=== PATIENT | female | born 1930 | race Caucasian/White ===

== ENCOUNTER 2016-11-09 13:44 | Inpatient (IN) ==
--- NOTE | 2016-11-09 14:46 | XRay Report ---
Indication: Clearance PROCEDURE: XR chest 1V: Encounter: Initial Comparison: None Findings: Lungs are clear. No consolidation, pleural effusion or pneumothorax. Left pacemaker with probable cardiac valve replacement. Heart size and mediastinal contours are within normal limits. Pulmonary vascularity is normal. Severe degenerative change in both shoulders. Impression: No acute cardiopulmonary disease. .
[2016-11-09] MEDS ORDERED: HALOPERIDOL 0.5 MG TABLET PO PRN (15:16)
[2016-11-09] MEDS ORDERED: HALOPERIDOL 5 MG/ML INJECTION IM PRN (15:16)
--- NOTE | 2016-11-09 19:14 | 24 Hour Neuropsychiatic Eval ---
Date of Admission: 11/09/16 14:18 Chief complaint: "They are lying" History of Present Illness: HPI: 86 Y/O CF who was recently on our unit sent from a PA for increasing paranoia. Nursing staff at the facility states the pt has been increasingly paranoid and angry with staff and believes staff were stealing her things. Pt had begun to refuse meds and was tearful at times. On face to face the pt has poor insight. She states staff stole some pearls from a necklace and they have been lying about her. She states some of the patients are actually staff in disguise and are spying on her. She states she feels safe here and denies S/I. STRESSORS: Pt believes NH staff are stealing her things. PSYCH ROS: Pt denies feeling depressed at this time. She is impulsive and gets angry easily. She is alert and oriented x 3 but does have some issues with memory. She denies S/i. She denies anxiety and denies AH but is paranoid and delusional. PAST PSYCH: Pt was recently admitted to our [facility] for similar symptoms. [facility] Patient Stated Medical History Cerebrovascular Accident Yes Cataracts Yes: "have been removed" Glaucoma Yes: " surgery on right eye" Coronary Artery Disease Yes Heart Murmur Yes Hypertension Yes Valvular Heart Disease Yes Obstructive Bowel Yes: " history of SBO" Other GI Yes: Colon Cancer, colon resection Other Yes: bladder tumor Osteoarthritis Yes Depression Yes Paranoid Disorder Yes Post Menopausal Yes Family History: No family hx of mental illness - Social History Smoking status: Never smoker Substance use type: does not use Housing: half-way service: No Review of Systems - Constitutional Constitutional: Present: fatigue - Musculoskeletal Musculoskeletal: Present: arthralgias - Neurological Neurological: Present: memory loss - Psychiatric Psychiatric: Present: behavioral changes Mental Status Exam Vitals: Last Vital Signs Temp 97.0 F 11/09/16 14:37 Pulse 84 11/09/16 14:37 Resp 18 11/09/16 14:37 BP 141/66 H 11/09/16 14:37 Pulse Ox 98 11/09/16 14:37 Height: 1.57 m Weight: 74.6 kg - Mental Status Exam Muscle Strength/Tone: Normal Dressing: Casual Grooming: Good Attitude: Cooperative Motor Activity: Normal Eye Contact: Good Speech: Normal Volume: Normal Rhythm: Appropriate Rhythm Orientation: Oriented X4 Mood: Neutral Affect: Hostile Rate of Thoughts: Appropriate Rate Thought Organization: [place] Associations: Illogical Abstract Reasoning: Poor abstract reasoning Thought Content: Delusions Perception/Psychotic: Perception Normal Fund of Knowledge: Poor fund of knowledge Memory: Poor-immediate Suicidal Ideation: None Homicidal Ideation: None Insight: Poor Judgement: Poor Impulse Control: Poor - Laboratory Result Diagrams: 11/09/16 16:23 11/09/16 16:23 Laboratory Results - last 24 hr 11/09/16 11/09/16 11/09/16 16:23 16:23 17:44 WBC 6.6 RBC 3.55 L Hgb 11.2 L Hct 35.7 L MCV 100.6 H MCH 31.5 MCHC 31.4 RDW Std Deviation 49.0 Plt Count 206 MPV 10.2 Immature Gran % (Auto) 0.2 Neut % (Auto) 55.9 Lymph % (Auto) 29.0 [place] % (Auto) 8.8 Eos % (Auto) 5.3 H Baso % (Auto) 0.8 Neut # 3.7 Lymph # 1.9 [place] # 0.6 Eos # 0.4 Baso # 0.1 Abs Immat Gran (auto) 0.01 INR Turbidity < 20 Sodium 144 Potassium 3.8 Chloride 108 H Carbon Dioxide 27 Anion Gap 9 BUN 25.0 H Creatinine 0.9 GFR Calculation 59 BUN/Creatinine Ratio 28 H Glucose 106 Calculated Osmolality 281 H Calcium 9.4 Total Bilirubin 0.30 Icterus Index < 2 AST 28 ALT 42 Alkaline Phosphatase 118 Total Protein 7.4 Albumin 4.4 Globulin 3.0 Albumin/Globulin Ratio 1.5 TSH 2.41 Specimen Hemolysis < 15 Ur Collection Type Urine, clean catch Urine Color Yellow Urine Clarity Clear Urine pH 5.5 Ur Specific [place] 1.010 L Urine Protein Negative Urine Glucose (UA) Negative Urine Ketones Negative Urine Occult Blood Trace-intact Urine Nitrate Negative Urine Bilirubin Negative Urine Urobilinogen 0.2 Ur Leukocyte Esterase Trace A Urinalysis Comment Microscopic not ind. 11/09/16 17:59 WBC RBC Hgb Hct MCV MCH MCHC RDW Std Deviation Plt Count MPV Immature Gran % (Auto) Neut % (Auto) Lymph % (Auto) [place] % (Auto) Eos % (Auto) Baso % (Auto) Neut # Lymph # [place] # Eos # Baso # Abs Immat Gran (auto) INR 2.37 H Turbidity Sodium Potassium Chloride Carbon Dioxide Anion Gap BUN Creatinine GFR Calculation BUN/Creatinine Ratio Glucose Calculated Osmolality Calcium Total Bilirubin Icterus Index AST ALT Alkaline Phosphatase Total Protein Albumin Globulin Albumin/Globulin Ratio TSH Specimen Hemolysis Ur Collection Type Urine Color Urine Clarity Urine pH Ur Specific [place] Urine Protein Urine Glucose (UA) Urine Ketones Urine Occult Blood Urine Nitrate Urine Bilirubin Urine Urobilinogen Ur Leukocyte Esterase Urinalysis Comment Assessment and Plan (1) Major neurocognitive disorder Problem details: with behavioral disturbance Current visit: Yes Status: Acute Will restart home meds. Baseline labs and med team to follow.
[2016-11-09] MEDS: WARFARIN 5 MG TABLET PO SCH (19:30)
[2016-11-09] MEDS: RisperiDONE 0.5 MG TABLET PO SCH (20:11)
[2016-11-09] MEDS: PHENYTOIN 100 MG CAPSULE PO SCH (20:11)
[2016-11-09] MEDS: GABAPENTIN 100 MG CAPSULE PO SCH (20:11)
[2016-11-09] MEDS: MIRTAZAPINE 15 MG TABLET PO SCH (20:11)
[2016-11-09] MEDS: PANTOPRAZOLE 20 MG TABLET PO SCH (20:12)
[2016-11-09] MEDS: TRAVOPROST 0.004% EYE DROPS 2.5ml EACH EYE SCH (20:12)
--- NOTE | 2016-11-10 07:56 | Pharmacy Consult ---
Pharmacy Consult-Warfarin - Laboratory Information 11/09/16 17:59 INR 2.37 H - Consult Information COUMADIN CONSULT (Initial): Dx: A.FIB AND HISTORY OF CVA Baseline INR = 2.37. Will give Warfarin 5mg daily per home dose. Will continue to monitor and make adjustments accordingly. Thank you.
[2016-11-10] MEDS: ASPIRIN 81 MG CHEWABLE TABLET PO SCH (08:26)
[2016-11-10] MEDS: DULOXETINE 60 MG CAPSULE PO SCH (08:27)
[2016-11-10] MEDS: LISINOPRIL 5 MG TABLET PO SCH (08:28)
[2016-11-10] MEDS: GABAPENTIN 100 MG CAPSULE PO SCH ×2 (08:28→20:14)
[2016-11-10] MEDS: TOPIRAMATE 25 MG TABLET PO SCH (08:36)
[2016-11-10] MEDS ORDERED: ATORVASTATIN 10 MG TABLET PO SCH (09:00)
[2016-11-10] MEDS ORDERED: PHENYTOIN 100 MG CAPSULE PO SCH (09:00)
--- NOTE | 2016-11-10 16:43 | History & Physical Report ---
<Ashly Pan V - Last Filed: 11/10/16 16:38> History of Present Illness Date: 11/10/16 Chief complaint: neurocognitive disorder with behavioral disturbance HPI: Cristine is an 86-year-old who is known to the hospitalist services as she was recently admitted on [facility] unit in August 2016 for increased neurocognitive behaviors with disturbance. She continues to reside at [facility] in [place], [place]. It is reported that she has had an increase in paranoid behaviors and accusing staff of stealing her belongings. She has been tearful at times and refusing to take her medications. Patient was evaluated by the [facility] staff and accepted for admission for further psychiatric evaluation and treatment. Admission laboratory studies are reviewed. The WBC count 6.6, hemoglobin 11.2, hematocrit 35.7, platelet count 206. Chemistry panel reviewed, sodium 144, potassium 3.8, BUN 25, creatinine 0.9, glucose 106. Vitamin B12 344, folate 11.9 , TSH 2.41. A urinalysis is obtained that is unremarkable. She is afebrile, pulse 75, blood pressure 140/62, room air saturations 98%. She is seen and examined this afternoon while napping in bed. She does arouse during examination and smiles making eye contact, stating that she feels "fine" . She does not appear to be in any acute distress and she denies having any pain , shortness of breath, GI complaints, or other concerns. Review of Systems ROS unobtainable: due to mental status All systems: reviewed and no additional remarkable complaints except as stated Review of systems: Patient does deny complete review of systems, however, it is unclear if this is accurate due to her mental status - Musculoskeletal Musculoskeletal: Present: arthralgias - Neurological Neurological: Present: memory loss - Psychiatric Psychiatric: Present: behavioral changes PFS Patient Stated Medical History Atrial fibrillation Hypertension Coronary artery disease History of colon cancer History of CVA History of bladder cancer. Arthritis, Glaucoma, Irritable bowel syndrome hypercholesterolemia history of seizures Surgical History: Pacemaker-2015. Cardiac catheter February/2015. Hysterectomy -1996. Appendectomy. Bilateral hip replacements. Colonoscopy-2004 Family History: Noncontributory - Social History Smoking status: Never smoker Substance use type: does not use Alcohol intake frequency: does not drink Current residence: [place] Social history: PCP Dr Montserrat Lockhart Medications Home Medications Medication Instructions Recorded Confirmed Type Acetaminophen [Tylenol Extra 1 tab PO Q4-6H PRN #0 tab 09/08/16 11/09/16 History Strength] Acetaminophen [Tylenol] 2 tab PO TID #60 tab 09/08/16 11/09/16 History Aspirin 1 tab PO DAILY #30 tab 09/08/16 11/09/16 History Atorvastatin Calcium 1 tab PO DAILY #0 tab 09/08/16 11/09/16 History Diphenoxylate HCl/Atropine 1 tab PO QID PRN #20 tab 09/08/16 History [Lomotil 2.5-0.025 mg Tablet] Dorzolamide HCl/Timolol Maleat 1 drop OP BID #10 ml 09/08/16 11/09/16 History [Dorzolamide-Timolol Eye Drops] Duloxetine HCl 1 cap PO DAILY #0 cap 09/08/16 11/09/16 History Gabapentin 1 cap PO BID #0 cap 09/08/16 11/09/16 History Hydrocodone/Acetaminophen ([place] 1 tab PO Q6H PRN #0 tab 09/08/16 11/09/16 History 5-325 Tablet) Lisinopril 5 mg PO DAILY #0 tab 09/08/16 11/09/16 History Metoprolol Succinate 50 mg PO DAILY #0 tab 09/08/16 11/09/16 History Mirtazapine 7.5 mg PO HS #0 09/08/16 11/09/16 History Pantoprazole Sodium 20 mg PO HS #0 09/08/16 11/09/16 History Phenytoin Sodium Extended 2 cap PO HS #90 cap 09/08/16 11/09/16 History [Dilantin] Phenytoin Sodium Extended 3 cap PO HS #90 cap 09/08/16 11/09/16 History [Dilantin] Topiramate 1 tab PO DAILY #90 tab 09/08/16 11/09/16 History Travoprost [Travatan Z] 1 drop OP HS #0 09/08/16 11/09/16 History Warfarin Sodium 5 mg PO 1700 #0 tab 09/08/16 11/09/16 History dilTIAZem HCl [Diltiazem 24Hr ER] 180 mg PO DAILY #0 cap 09/08/16 11/09/16 History hydrOXYzine pamoate [Hydroxyzine 1 cap PO BID PRN #60 cap 09/08/16 11/09/16 History Pamoate] Allergies Allergy/AdvReac Type Severity Reaction Status Date / Time folic acid Allergy Unknown Verified 11/09/16 14:05 iodine Allergy Unknown Verified 11/09/16 14:05 lutein Allergy Unknown Verified 11/09/16 14:05 lycopene Allergy Unknown Verified 11/09/16 14:05 morphine Allergy Unknown Verified 11/09/16 14:05 multivitamin with minerals Allergy Unknown Verified 11/09/16 14:05 penicillin V Allergy Unknown Verified 11/09/16 14:05 Exam Vital Signs: Temperature 98.1 F 11/10/16 08:18 Pulse Rate 75 11/10/16 08:18 Respiratory Rate 16 11/09/16 20:31 Blood Pressure 140/62 H 11/10/16 08:18 Pulse Oximetry 98 11/10/16 08:18 Oxygen Delivery Method Room Air Height: 1.57 m Weight: 74.6 kg Body Mass Index: 30.0 - Constitutional Present: no acute distress, well nourished, well developed - Routine HEENT Exam Head: Present: normocephalic, atraumatic Eye: Present: EOMI, PERRL ENT: Present: mucous membranes moist, dentition normal - Routine Respiratory Exam Present: CTA bilaterally. Absent: wheezes - Routine Cardiovascular Exam Present: RRR, S1, S2. Absent: murmur - Routine Abdominal Exam Present: soft, normoactive bowel sounds, non distended. Absent: tenderness - Routine Extremities Exam Present: normal capillary refill - Routine Back/Spine/Pelvis Exam Back/Spine: Present: full ROM - Routine Skin Exam Present: intact, dry, warm - Routine Neurological Exam Present: alert, CN II-XII intact, moving all extremities - Routine Psychiatric Exam Present: cooperative Results - Labs CBC & Chem 7: 11/09/16 16:23 11/09/16 16:23 Assessment and Plan Assessment and Plan: 11/10/16- Admission Major neurocognitive disorder Paranoia Atrial fibrillation Hypertension. Coronary artery disease. Irritable bowel syndrome. Hypercholesterolemia Osteoarthritis History of colon cancer and bladder cancer. History of CVA. History of seizures Plan Agree with admission to [facility] for further psychiatric eval use and treatment under the care of Dr. Rousseau. All admission laboratory studies were reviewed. Patient does appear to be medically stable at this time. Continue with home cardiology medications including Cardizem, aspirin Patient is chronically anti-coagulated. Pharmacist consultated for management of daily INR and Coumadin dosing. INR today 2.37 Did review code status-full code. Would encourage patient to participate in unit activities and provide a safe environment. Appreciate medical consultation. The hospitalist services will continue to palpation medically manage her existing comorbidities. At time of discharge her medical care will return to her primary care provider Sepsis Assessment - Evaluation Sepsis screening result: No Definite Risk Hospital Course Summary Disclaimer: The visit summary below is not to be considered part of the above Progress Note. Hospital Course: 11/10/16- Admission Major neurocognitive disorder Paranoia Atrial fibrillation Hypertension. Coronary artery disease. Irritable bowel syndrome. Hypercholesterolemia Osteoarthritis History of colon cancer and bladder cancer. History of CVA. History of seizures Plan Agree with admission to [facility] for further psychiatric eval use and treatment under the care of Dr. Rousseau. All admission laboratory studies were reviewed. Patient does appear to be medically stable at this time. Continue with home cardiology medications including Cardizem, aspirin Patient is chronically anti-coagulated. Pharmacist consulted for management of daily INR and Coumadin dosing. INR today 2.37 Did review code status-full code. Would encourage patient to participate in unit activities and provide a safe environment. Appreciate medical consultation. The hospitalist services will continue to palpation medically manage her existing comorbidities. At time of discharge her medical care will return to her primary care provider <Mamie De Los Santos - Last Filed: 11/10/16 19:10> History of Present Illness Date: 11/10/16 [facility] Patient Stated Medical History Cerebrovascular Accident Yes Cataracts Yes: "have been removed" Glaucoma Yes: " surgery on right eye" Coronary Artery Disease Yes Heart Murmur Yes Hypertension Yes Valvular Heart Disease Yes Obstructive Bowel Yes: " history of SBO" Other GI Yes: Colon Cancer, colon resection Other Yes: bladder tumor Osteoarthritis Yes Depression Yes Paranoid Disorder Yes Post Menopausal Yes Exam Vital Signs: Temperature 98.2 F 11/10/16 16:00 Pulse Rate 84 11/10/16 16:00 Respiratory Rate 16 11/10/16 16:00 Blood Pressure 153/71 H 11/10/16 16:00 Pulse Oximetry 99 11/10/16 16:00 Oxygen Delivery Method Room Air Height: 5 ft 2 in Weight: 164 lb 7.437 oz - Routine Neurological Exam Present: alert, oriented X3, CN II-XII intact, normal reflexes, moving all extremities, normal tone, normal speech. Absent: sensory deficit, motor deficit , clonus, fasciculations, tremors Results - Labs CBC & Chem 7: 11/09/16 16:23 11/09/16 16:23 Hospital Course Summary Disclaimer: The visit summary below is not to be considered part of the above Progress Note. Hospital Course: 11/10/16 19:05 I have independently evaluated and examined this patient. I reviewed the chart, the patient's history, and the [employer]EL[employer]/PA"s documented findings as above. We discussed and formulated the assessment and plan as above with additions as below. The patient was alert and examined in the common room while watching TV. She has no complaints. There is some concern about receiving her eyedrops in her right eye. She had surgery in her right eye for glaucoma by Dr. Fernández and was told not to put anything in her eye. Subsequently she has only been using drops in her left eye in spite of the nurses attempts to work with her. After discussion she agreed to try the Travatan in both eyes. She does not want the Cosopt in her right eye as she reports it srivastava Thank you for allowing me to participate in this patient's care. We'll follow along with you signed Dr. De Los Santos.
[2016-11-10] MEDS: WARFARIN 5 MG TABLET PO SCH (17:34)
--- NOTE | 2016-11-10 17:41 | Neuropsych Progress Note ---
[facility] Subjective Date: 11/10/16 - Sujective/Severity of Illness Medications: Acetaminophen/Hydrocodone Bitart ([place] 5/325) 1 tab PO Q6H PRN PRN Reason: P Aspirin (Asa) [address] [facility] Last Admin: 11/10/16 08:26 Dose: 81 mg Atorvastatin Calcium (Lipitor) [address] [facility] Diltiazem HCl (Cardizem Cd) [address] [facility] Last Admin: 11/10/16 08:26 Dose: 180 mg Dorzolamide/Timolol (Cosopt Ocumeter Plus) [address] [facility] Last Admin: 11/10/16 08:27 Dose: 1 drops Duloxetine HCl (Cymbalta) [address] [facility] Last Admin: 11/10/16 08:27 Dose: 60 mg Gabapentin (Neurontin) [address] [facility] Last Admin: 11/10/16 08:28 Dose: 100 mg Haloperidol (Haldol) 0.5 mg PO Q6H PRN PRN Reason: Extreme agitation Haloperidol Lactate (Haldol) 0.5 mg IM Q6H PRN PRN Reason: Extreme agitation Hydroxyzine HCl (Atarax) 25 mg PO BID PRN PRN Reason: Anxiety Lisinopril (Prinivil) [address] [facility] Last Admin: 11/10/16 08:28 Dose: 5 mg Lorazepam (Ativan) 0.5 mg PO Q6H PRN PRN Reason: Extreme agitation Lorazepam (Ativan Inj) 0.5 mg IM Q6H PRN PRN Reason: Extreme agitation Metoprolol Succinate (Toprol Xl) [address] [facility] Last Admin: 11/10/16 08:36 Dose: 50 mg Mirtazapine (Remeron) 7.[address] [facility] Last Admin: 11/09/16 20:11 Dose: 7.5 mg Pantoprazole Sodium (Protonix) [address] [facility] Last Admin: 11/09/16 20:12 Dose: 20 mg Phenytoin Sodium (Dilantin) [address] [facility] Last Admin: 11/09/16 20:11 Dose: 300 mg Phenytoin Sodium (Dilantin) [address] [facility] Risperidone (Risperdal) 0.[address] [facility] Last Admin: 11/10/16 08:36 Dose: 0.25 mg Risperidone (Risperdal) 0.5 mg PO [facility] Last Admin: 11/09/16 20:11 Dose: 0.5 mg Topiramate (Topamax) [address] [facility] Last Admin: 11/10/16 08:36 Dose: 25 mg Travoprost (Travatan Z) 1 drops EACH EYE [facility] Last Admin: 11/09/16 20:12 Dose: 1 drops Warfarin Sodium (Coumadin) [address] [facility] Last Admin: 11/10/16 17:34 Dose: 5 mg Warfarin Sodium (Coumadin Protocol) [address] [facility] Subjective: Pt seen and chart examined. Nursing reports pt is doing well on the unit. Sleeping well and has a good appetite. No behaviors noted. On face to face the pt states she is doing well. She reports her mood is stable. She denies any S/I. She continues to have some delusions about staff at the [facility] but none of those symptoms are present here. Tolerating meds Start Time: 17:30 Stop Time: 17:45 Mental Status Exam Vitals: Last Vital Signs Temp 98.2 F 11/10/16 16:00 Pulse 84 11/10/16 16:00 Resp 16 11/10/16 16:00 BP 153/71 H 11/10/16 16:00 Pulse Ox 99 11/10/16 16:00 Height: 1.57 m Weight: 74.6 kg - Mental Status Exam Muscle Strength/Tone: Normal Dressing: Casual Grooming: Good Attitude: Cooperative Motor Activity: Normal Eye Contact: Good Speech: Normal Volume: Normal Rhythm: Appropriate Rhythm Orientation: Oriented X4 Mood: Neutral Rate of Thoughts: Appropriate Rate Thought Organization: Means Associations: Illogical Abstract Reasoning: Poor abstract reasoning Thought Content: Delusions Perception/Psychotic: Perception Normal Fund of Knowledge: Poor fund of knowledge Memory: Poor-immediate Suicidal Ideation: None Homicidal Ideation: None Insight: Poor Judgement: Poor Impulse Control: Poor - Laboratory Result Diagrams: 11/09/16 16:23 11/09/16 16:23 Laboratory Results - last 24 hr 11/09/16 11/09/16 11/09/16 16:23 17:44 17:59 INR 2.37 H Vitamin B12 344 Folate 11.4 Ur Collection Type Urine, clean catch Urine Color Yellow Urine Clarity Clear Urine pH 5.5 Ur Specific [place] 1.010 L Urine Protein Negative Urine Glucose (UA) Negative Urine Ketones Negative Urine Occult Blood Trace-intact Urine Nitrate Negative Urine Bilirubin Negative Urine Urobilinogen 0.2 Ur Leukocyte Esterase Trace A Urinalysis Comment Microscopic not ind. Assessment and Plan (1) Major depressive disorder, recurrent, severe with psychotic features Current visit: Yes Status: Acute Hospital Course Summary Disclaimer: The visit summary below is not to be considered part of the above Progress Note. Hospital Course: 11/10/16- Admission Major neurocognitive disorder Paranoia Atrial fibrillation Hypertension. Coronary artery disease. Irritable bowel syndrome. Hypercholesterolemia Osteoarthritis History of colon cancer and bladder cancer. History of CVA. History of seizures Plan Agree with admission to [facility] for further psychiatric eval use and treatment under the care of Dr. Rousseau. All admission laboratory studies were reviewed. Patient does appear to be medically stable at this time. Continue with home cardiology medications including Cardizem, aspirin Patient is chronically anti-coagulated. Pharmacist consulted for management of daily INR and Coumadin dosing. INR today 2.37 Did review code status-full code. Would encourage patient to participate in unit activities and provide a safe environment. Appreciate medical consultation. The hospitalist services will continue to palpation medically manage her existing comorbidities. At time of discharge her medical care will return to her primary care provider 11/10/16 17:40 Continue current care
[2016-11-10] MEDS: ATORVASTATIN 10 MG TABLET PO SCH (20:13)
[2016-11-10] MEDS: TRAVOPROST 0.004% EYE DROPS 2.5ml EACH EYE SCH (20:13)
[2016-11-10] MEDS: RisperiDONE 0.5 MG TABLET PO SCH (20:13)
[2016-11-10] MEDS: PANTOPRAZOLE 20 MG TABLET PO SCH (20:14)
[2016-11-10] MEDS: MIRTAZAPINE 15 MG TABLET PO SCH (20:14)
[2016-11-10] MEDS: PHENYTOIN 100 MG CAPSULE PO SCH (20:14)
--- NOTE | 2016-11-11 07:53 | Neuropsych Progress Note ---
Generations Subjective Date: 11/11/16 - Sujective/Severity of Illness Medications: Acetaminophen/Hydrocodone Bitart ([place] 5/325) 1 tab PO Q6H PRN PRN Reason: P Aspirin (Asa) 81 mg PO DAILY [facility] Last Admin: 11/10/16 08:26 Dose: 81 mg Atorvastatin Calcium (Lipitor) 10 mg PO HS [facility] Last Admin: 11/10/16 20:13 Dose: 10 mg Diltiazem HCl (Cardizem Cd) 180 mg PO DAILY [facility] Last Admin: 11/10/16 08:26 Dose: 180 mg Dorzolamide/Timolol (Cosopt Ocumeter Plus) 1 drops RIGHT EYE BID [facility] Last Admin: 11/10/16 20:12 Dose: 1 drops Duloxetine HCl (Cymbalta) 60 mg PO DAILY [facility] Last Admin: 11/10/16 08:27 Dose: 60 mg Gabapentin (Neurontin) 100 mg PO BID [facility] Last Admin: 11/10/16 20:14 Dose: 100 mg Haloperidol (Haldol) 0.5 mg PO Q6H PRN PRN Reason: Extreme agitation Haloperidol Lactate (Haldol) 0.5 mg IM Q6H PRN PRN Reason: Extreme agitation Hydroxyzine HCl (Atarax) 25 mg PO BID PRN PRN Reason: Anxiety Lisinopril (Prinivil) 5 mg PO DAILY [facility] Last Admin: 11/10/16 08:28 Dose: 5 mg Lorazepam (Ativan) 0.5 mg PO Q6H PRN PRN Reason: Extreme agitation Lorazepam (Ativan Inj) 0.5 mg IM Q6H PRN PRN Reason: Extreme agitation Metoprolol Succinate (Toprol Xl) 50 mg PO DAILY [facility] Last Admin: 11/10/16 08:36 Dose: 50 mg Mirtazapine (Remeron) 7.5 mg PO HS [facility] Last Admin: 11/10/16 20:14 Dose: 7.5 mg Pantoprazole Sodium (Protonix) 20 mg PO HS [facility] Last Admin: 11/10/16 20:14 Dose: 20 mg Phenytoin Sodium (Dilantin) 300 mg PO HS [facility] Last Admin: 11/10/16 20:14 Dose: 300 mg Phenytoin Sodium (Dilantin) 200 mg PO WB [facility] Risperidone (Risperdal) 0.25 mg PO DAILY [facility] Last Admin: 11/10/16 08:36 Dose: 0.25 mg Risperidone (Risperdal) 0.5 mg PO HS [facility] Last Admin: 11/10/16 20:13 Dose: 0.5 mg Topiramate (Topamax) 25 mg PO DAILY [facility] Last Admin: 11/10/16 08:36 Dose: 25 mg Travoprost (Travatan Z) 1 drops EACH EYE [facility] Last Admin: 11/10/16 20:13 Dose: 1 drops Warfarin Sodium (Coumadin) 5 mg PO 1700 [facility] Last Admin: 11/10/16 17:34 Dose: 5 mg Warfarin Sodium (Coumadin Protocol) 0 [facility] NOTE [facility] Subjective: Pt seen and chart examined. Case discussed w RN. She was admitted 2 days prior from OR with depressive history with paranoia and delusions. RN reports per daughter she has had a long hx of "drama" around her. She makes accusations towards staff there. She was quite pleasant with me this morning but continues to have delusions towards staff back at her [facility]. She speaks of someone having shorted her $100 and such. RN reports she can be demanding with them but reports she's not been accusatory with them. She is well oriented and fairly aware. Able to order her own food. She slept well last night per RN. Start Time: 06:45 Stop Time: 07:00 Mental Status Exam Vitals: Last Vital Signs Temp 98.2 F 11/11/16 00:00 Pulse 73 11/11/16 00:00 Resp 16 11/11/16 00:00 BP 137/66 11/11/16 00:00 Pulse Ox 98 11/11/16 00:00 Height: 5 ft 2 in Weight: 74.6 kg - Mental Status Exam Muscle Strength/Tone: Normal Dressing: Casual Grooming: Good Attitude: Cooperative, Suspicious Motor Activity: Normal Eye Contact: Good Speech: Normal Volume: Normal Rhythm: Appropriate Rhythm Orientation: Oriented X4 Mood: Neutral Rate of Thoughts: Appropriate Rate Thought Organization: [place] Associations: Illogical Abstract Reasoning: Poor abstract reasoning Thought Content: Delusions, Paranoia Perception/Psychotic: Perception Normal Fund of Knowledge: Poor fund of knowledge Memory: Poor-immediate Suicidal Ideation: None Homicidal Ideation: None Insight: Poor Judgement: Poor Impulse Control: Poor - Laboratory Result Diagrams: 11/09/16 16:23 11/09/16 16:23 Laboratory Results - last 24 hr 11/11/16 05:11 INR 2.84 H Assessment and Plan (1) Major depressive disorder, recurrent, severe with psychotic features Current visit: Yes Status: Acute Hospital Course Summary Disclaimer: The visit summary below is not to be considered part of the above Progress Note. Hospital Course: 11/11/16 12:04 Increase Risperidone to 1mg PO q HS
[2016-11-11] MEDS: PHENYTOIN 100 MG CAPSULE PO SCH ×3 (08:16→21:32)
[2016-11-11] MEDS: ASPIRIN 81 MG CHEWABLE TABLET PO SCH (08:16)
[2016-11-11] MEDS: TOPIRAMATE 25 MG TABLET PO SCH (08:17)
[2016-11-11] MEDS: LISINOPRIL 5 MG TABLET PO SCH (08:17)
[2016-11-11] MEDS: GABAPENTIN 100 MG CAPSULE PO SCH ×3 (08:17→21:32)
[2016-11-11] MEDS: DULOXETINE 60 MG CAPSULE PO SCH (08:17)
--- NOTE | 2016-11-11 08:25 | Pharmacy Consult ---
Pharmacy Consult-Warfarin - Laboratory Information 11/09/16 11/11/16 17:59 05:11 INR 2.37 H 2.84 H - Consult Information Will continue warfarin 5mg po daily.
[2016-11-11] MEDS ORDERED: RisperiDONE 0.5 MG TABLET PO SCH (12:06)
--- NOTE | 2016-11-11 14:36 | Progress Note ---
Subjective: Cristine is seen today in follow up. She is alert, wakes easily from a nap when I speak to her. She denies any acute concerns. Chart is reviewed for collateral information. Objective Vital signs: Temperature 96.9 F 11/11/16 08:00 Pulse Rate 71 11/11/16 08:00 Respiratory Rate 18 11/11/16 08:00 Blood Pressure 139/71 11/11/16 08:00 Pulse Oximetry 98 11/11/16 08:00 Oxygen Delivery Method Room Air Body Mass Index: 30.0 - Constitutional Present: no acute distress, well nourished, well developed - Routine HEENT Exam Head: Present: normocephalic, atraumatic Eye: Present: EOMI, PERRL ENT: Present: mucous membranes moist - Routine Respiratory Exam Present: CTA bilaterally. Absent: wheezes, crackles Comments: No SOA. Does not appear fluid overloaded. - Routine Cardiovascular Exam Present: RRR, S1, S2, no murmur, click (There is no click c/w mechanical valve) - Routine Abdominal Exam Present: soft, normoactive bowel sounds, non distended, non tender - Routine Extremities Exam Present: edema (Trace LE edema, nonpitting. ). Absent: calf tenderness - Routine Musculoskeletal Exam Musculoskeletal: Present: no clubbing or cyanosis, moving extremities well - Routine Skin Exam Present: intact, dry, warm - Routine Neurological Exam Present: alert, moving all extremities - Routine Psychiatric Exam Present: cooperative Results - Labs CBC & Chem 7: 11/09/16 16:23 11/09/16 16:23 - Impressions CXR no acute findings Assessment and Plan (1) Major depressive disorder, recurrent, severe with psychotic features Current visit: Yes Status: Acute (2) HTN (hypertension) Current visit: Yes Status: Chronic (3) Atrial fibrillation Current visit: Yes Status: Chronic (4) Chronic anticoagulation Current visit: Yes Status: Chronic (5) H/O: stroke Current visit: Yes Status: Chronic (6) History of seizures Current visit: Yes Status: Chronic DVT Prophylaxis: Coumadin Assessment and Plan: 11/11/16 Major neurocognitive disorder Paranoia Atrial fibrillation Hypertension. Coronary artery disease. Irritable bowel syndrome. Hypercholesterolemia Osteoarthritis History of colon cancer and bladder cancer. History of CVA. History of seizures Plan Patient is doing well medically. Labs reviewed- pharmacy consulted to manage warfarin. Goal INR 2.0-3.0 given hx of Atrial Fib. (nursing notes state mechanical valve, but I cannot find that on hx or exam). Continue Gabapentin/Dilantin. Need to avoid quinolones if infection concerns given known sz hx. Avoid Tramadol. Continue supportive meds for CAD (? CHF hx- monitor fluid status). - Time spent with patient 25 - 35 minutes Sepsis Assessment - Evaluation Sepsis screening result: No Definite Risk Hospital Course Summary Disclaimer: The visit summary below is not to be considered part of the above Progress Note. Hospital Course: 11/11/16 12:04 Increase Risperidone to 1mg PO q HS 11/11/16 14:40 Patient is doing well medically. Labs reviewed- pharmacy consulted to manage warfarin. Goal INR 2.0-3.0 given hx of Atrial Fib. (nursing notes state mechanical valve, but I cannot find that on hx or exam). Continue Gabapentin/Dilantin. Need to avoid quinolones if infection concerns given known sz hx. Avoid Tramadol. Continue supportive meds for CAD (? CHF hx- monitor fluid status).
[2016-11-11] MEDS: ATORVASTATIN 10 MG TABLET PO SCH ×2 (19:39→21:32)
[2016-11-11] MEDS: PANTOPRAZOLE 20 MG TABLET PO SCH ×2 (19:40→21:33)
[2016-11-11] MEDS: MIRTAZAPINE 15 MG TABLET PO SCH ×2 (19:40→21:33)
[2016-11-11] MEDS: RisperiDONE 1 MG TABLET PO SCH ×2 (19:41→21:33)
[2016-11-11] MEDS: TRAVOPROST 0.004% EYE DROPS 2.5ml EACH EYE SCH ×2 (19:42→21:33)
[2016-11-11] MEDS: HYDROCODONE/APAP 5mg/325mg TABLET PO PRN (21:35)
[2016-11-11] MEDS: WARFARIN 5 MG TABLET PO SCH (22:38)
[2016-11-11] MEDS ORDERED: LOPERAMIDE 2 MG CAPSULE PO PRN (23:21)
[2016-11-12] MEDS: ASPIRIN 81 MG CHEWABLE TABLET PO SCH (08:15)
[2016-11-12] MEDS: PHENYTOIN 100 MG CAPSULE PO SCH ×2 (08:15→20:01)
[2016-11-12] MEDS: LISINOPRIL 5 MG TABLET PO SCH (08:17)
[2016-11-12] MEDS: GABAPENTIN 100 MG CAPSULE PO SCH ×2 (08:17→20:01)
[2016-11-12] MEDS: DULOXETINE 60 MG CAPSULE PO SCH (08:17)
[2016-11-12] MEDS: TOPIRAMATE 25 MG TABLET PO SCH (08:18)
--- NOTE | 2016-11-12 08:33 | Pharmacy Consult ---
Pharmacy Consult-Warfarin - Laboratory Information 11/09/16 11/11/16 17:59 05:11 INR 2.37 H 2.84 H - Consult Information No INR today, patient is currently on warfarin 5mg po daily. Thank you.
--- NOTE | 2016-11-12 12:00 | Neuropsych Progress Note ---
Generations Subjective Date: 11/12/16 - Sujective/Severity of Illness Medications: Acetaminophen/Hydrocodone Bitart ([place] 5/325) 1 tab PO Q6H PRN PRN Reason: P Last Admin: 11/11/16 21:35 Dose: 1 tab Aspirin (Asa) 81 mg PO DAILY [facility] Last Admin: 11/12/16 08:15 Dose: 81 mg Atorvastatin Calcium (Lipitor) 10 mg PO 2100 [facility] Last Admin: 11/11/16 21:32 Dose: Not Given Diltiazem HCl (Cardizem Cd) 180 mg PO DAILY [facility] Last Admin: 11/12/16 08:19 Dose: 180 mg Dorzolamide/Timolol (Cosopt Ocumeter Plus) 1 drops RIGHT EYE BID [facility] Last Admin: 11/12/16 08:17 Dose: 1 drops Duloxetine HCl (Cymbalta) 60 mg PO DAILY [facility] Last Admin: 11/12/16 08:17 Dose: 60 mg Gabapentin (Neurontin) 100 mg PO BID [facility] Last Admin: 11/12/16 08:17 Dose: 100 mg Haloperidol (Haldol) 0.5 mg PO Q6H PRN PRN Reason: Extreme agitation Haloperidol Lactate (Haldol) 0.5 mg IM Q6H PRN PRN Reason: Extreme agitation Hydroxyzine HCl (Atarax) 25 mg PO BID PRN PRN Reason: Anxiety Lisinopril (Prinivil) 5 mg PO DAILY [facility] Last Admin: 11/12/16 08:17 Dose: 5 mg Loperamide HCl (Imodium) 2 - 4 mg PO Q4H PRN PRN Reason: LOOSE STOOLS Lorazepam (Ativan) 0.5 mg PO Q6H PRN PRN Reason: Extreme agitation Lorazepam (Ativan Inj) 0.5 mg IM Q6H PRN PRN Reason: Extreme agitation Metoprolol Succinate (Toprol Xl) 50 mg PO DAILY [facility] Last Admin: 11/12/16 08:18 Dose: 50 mg Mirtazapine (Remeron) 7.5 mg PO 2100 [facility] Last Admin: 11/11/16 21:33 Dose: Not Given Pantoprazole Sodium (Protonix) 20 mg PO 2100 [facility] Last Admin: 11/11/16 21:33 Dose: Not Given Phenytoin Sodium (Dilantin) 200 mg PO WB [facility] Last Admin: 11/12/16 08:15 Dose: 200 mg Phenytoin Sodium (Dilantin) 300 mg PO 2100 [facility] Last Admin: 11/11/16 21:32 Dose: Not Given Risperidone (Risperdal) 0.25 mg PO DAILY [facility] Last Admin: 11/12/16 08:18 Dose: 0.25 mg Risperidone (Risperdal) 1 mg PO 2100 [facility] Last Admin: 11/11/16 21:33 Dose: Not Given Topiramate (Topamax) 25 mg PO DAILY [facility] Last Admin: 11/12/16 08:18 Dose: 25 mg Travoprost (Travatan Z) 1 drops EACH EYE HS [facility] Last Admin: 11/11/16 21:33 Dose: Not Given Warfarin Sodium (Coumadin) 5 mg PO 1700 [facility] Last Admin: 11/11/16 22:38 Dose: Not Given Warfarin Sodium (Coumadin Protocol) 0 [facility] NOTE [facility] Subjective: Pt seen and chart examined. Case discussed w RN. She was admitted [facility] days prior from [place] with depressive history with paranoia and delusions. RN reports she continues to have delusions towards her [facility] staff but none really directed towards them thus far. She is resting quietly upon my visit this morning and reportedly slept fairly well last night. No behavioral concerns on the unit and no PRNs required. Mood remains frustrated with things. Start Time: 07:45 Stop Time: 08:00 Mental Status Exam Vitals: Last Vital Signs Temp 98.2 F 11/12/16 08:00 Pulse 75 11/12/16 08:00 Resp 16 11/12/16 08:00 BP 148/67 H 11/12/16 08:00 Pulse Ox 96 11/12/16 08:00 Height: 5 ft 2 in Weight: 74.6 kg - Mental Status Exam Muscle Strength/Tone: Normal Dressing: Casual Grooming: Good Attitude: Cooperative, Suspicious Motor Activity: Normal Eye Contact: Good Speech: Normal Volume: Normal Rhythm: Appropriate Rhythm Orientation: Oriented X4 Mood: Neutral, Other (frustrated) Rate of Thoughts: Appropriate Rate Thought Organization: [place] Associations: Illogical Abstract Reasoning: Poor abstract reasoning Thought Content: Delusions, Paranoia Perception/Psychotic: Perception Normal Fund of Knowledge: Poor fund of knowledge Memory: Poor-immediate Suicidal Ideation: None Homicidal Ideation: None Insight: Poor Judgement: Poor Impulse Control: Poor - Laboratory Result Diagrams: 11/09/16 16:23 11/09/16 16:23 Assessment and Plan (1) Major depressive disorder, recurrent, severe with psychotic features Current visit: Yes Status: Acute Hospital Course Summary Disclaimer: The visit summary below is not to be considered part of the above Progress Note. Hospital Course: 11/11/16 12:04 Increase Risperidone to 1mg PO q HS 11/11/16 14:40 Patient is doing well medically. Labs reviewed- pharmacy consulted to manage warfarin. Goal INR 2.0-3.0 given hx of Atrial Fib. (nursing notes state mechanical valve, but I cannot find that on hx or exam). Continue Gabapentin/Dilantin. Need to avoid quinolones if infection concerns given known sz hx. Avoid Tramadol. Continue supportive meds for CAD (? CHF hx- monitor fluid status). 11/12/16 12:00 Continue current meds. Just increased Risperidone yesterday. If insufficient, may be able to tolerate 0.5mg in AM as well.
[2016-11-12] MEDS: WARFARIN 5 MG TABLET PO SCH (17:17)
[2016-11-12] MEDS: ATORVASTATIN 10 MG TABLET PO SCH (20:00)
[2016-11-12] MEDS: PANTOPRAZOLE 20 MG TABLET PO SCH (20:01)
[2016-11-12] MEDS: MIRTAZAPINE 15 MG TABLET PO SCH (20:02)
[2016-11-12] MEDS: TRAVOPROST 0.004% EYE DROPS 2.5ml EACH EYE SCH (20:03)
[2016-11-12] MEDS: RisperiDONE 1 MG TABLET PO SCH (23:56)
[2016-11-12] MEDS: HYDROCODONE/APAP 5mg/325mg TABLET PO PRN (23:57)
[2016-11-13] MEDS: TRAVOPROST 0.004% EYE DROPS 2.5ml EACH EYE SCH ×3 (00:17→21:03)
[2016-11-13] MEDS: PHENYTOIN 100 MG CAPSULE PO SCH ×3 (08:26→20:04)
[2016-11-13] MEDS: ASPIRIN 81 MG CHEWABLE TABLET PO SCH (08:28)
[2016-11-13] MEDS: DULOXETINE 60 MG CAPSULE PO SCH (08:29)
[2016-11-13] MEDS: GABAPENTIN 100 MG CAPSULE PO SCH ×2 (08:30→20:04)
[2016-11-13] MEDS: LISINOPRIL 5 MG TABLET PO SCH (08:30)
[2016-11-13] MEDS: TOPIRAMATE 25 MG TABLET PO SCH (08:31)
--- NOTE | 2016-11-13 12:19 | Pharmacy Consult ---
Pharmacy Consult-Warfarin - Laboratory Information 11/09/16 11/11/16 11/13/16 17:59 05:11 05:52 INR 2.37 H 2.84 H 4.24 H - Consult Information 86 y.o. F with history of A.Fib and chronic anti-coagulation with warfarin. goal INR range= 2.0 to 3.0. Home warfarin dose= 5 mg po daily. Today's INR is supra-therapeutic at 4.24. Will give no Warfarin today. Pharmacy will monitor and adjust as needed. Thank you for the protocol, Carrie Horta RPh Date INR dose 11/09 2.37 5 mg 11/10 --- 5 mg 11/11 2.84 5 mg 11/12 --- 5 mg 11/13 4.24 no dose
[2016-11-13] MEDS: HYDROCODONE/APAP 5mg/325mg TABLET PO PRN (14:41)
--- NOTE | 2016-11-13 19:58 | Neuropsych Progress Note ---
Gener[facility] Subjective Date: 11/13/16 - Sujective/Severity of Illness Medications: Acetaminophen/Hydrocodone Bitart ([place] 5/325) 1 tab PO Q6H PRN PRN Reason: P Last Admin: 11/13/16 14:41 Dose: 1 tab Aspirin (Asa) 81 mg PO DAILY [facility] Last Admin: 11/13/16 08:28 Dose: 81 mg Atorvastatin Calcium (Lipitor) 10 mg PO 2100 [facility] Last Admin: 11/12/16 20:00 Dose: 10 mg Diltiazem HCl (Cardizem Cd) 180 mg PO DAILY [facility] Last Admin: 11/13/16 08:28 Dose: 180 mg Dorzolamide/Timolol (Cosopt Ocumeter Plus) 1 drops RIGHT EYE BID [facility] Last Admin: 11/13/16 08:29 Dose: 1 drops Duloxetine HCl (Cymbalta) 60 mg PO DAILY [facility] Last Admin: 11/13/16 08:29 Dose: 60 mg Gabapentin (Neurontin) 100 mg PO BID [facility] Last Admin: 11/13/16 08:30 Dose: 100 mg Haloperidol (Haldol) 0.5 mg PO Q6H PRN PRN Reason: Extreme agitation Haloperidol Lactate (Haldol) 0.5 mg IM Q6H PRN PRN Reason: Extreme agitation Hydroxyzine HCl (Atarax) 25 mg PO BID PRN PRN Reason: Anxiety Lisinopril (Prinivil) 5 mg PO DAILY [facility] Last Admin: 11/13/16 08:30 Dose: 5 mg Loperamide HCl (Imodium) 2 - 4 mg PO Q4H PRN PRN Reason: LOOSE STOOLS Last Admin: 11/12/16 21:29 Dose: 4 mg Lorazepam (Ativan) 0.5 mg PO Q6H PRN PRN Reason: Extreme agitation Lorazepam (Ativan Inj) 0.5 mg IM Q6H PRN PRN Reason: Extreme agitation Metoprolol Succinate (Toprol Xl) 50 mg PO DAILY [facility] Last Admin: 11/13/16 08:31 Dose: 50 mg Mirtazapine (Remeron) 7.5 mg PO 2100 [facility] Last Admin: 11/12/16 20:02 Dose: 7.5 mg Pantoprazole Sodium (Protonix) 20 mg PO 2100 [facility] Last Admin: 11/12/16 20:01 Dose: 20 mg Phenytoin Sodium (Dilantin) 200 mg PO WB [facility] Last Admin: 11/13/16 08:27 Dose: 200 mg Phenytoin Sodium (Dilantin) 300 mg PO 2100 [facility] Last Admin: 11/12/16 20:01 Dose: 300 mg Risperidone (Risperdal) 0.25 mg PO DAILY [facility] Last Admin: 11/13/16 08:41 Dose: 0.25 mg Risperidone (Risperdal) 1 mg PO 2100 [facility] Last Admin: 11/12/16 23:56 Dose: 1 mg Topiramate (Topamax) 25 mg PO DAILY [facility] Last Admin: 11/13/16 08:31 Dose: 25 mg Travoprost (Travatan Z) 1 drops EACH EYE HS [facility] Last Admin: 11/13/16 00:17 Dose: Not Given Warfarin Sodium (Coumadin Protocol) 0 [facility] NOTE [facility] Subjective: Patient presented with paranoid ideation and she is currently on Risperidone 0.25mg daily and 1mg q HS. She is also on Mirtazapine 7.5 mg q HS Today, patient states that she is in the hospital because the facility wanted her to be of the vicinity when the "police" gets there. She states that the [facility] where she resides were getting ready to 'fire' some of their staff when she then called the police. She talks about how her son committed suicide after his father at the age of 40. Patient appears to be over- inclusive and has some thought derailment. Associating Symptoms: Sleep: good hours; Appetite:good Compliance: good; Adverse Effects: none PRN Meds in the last 24 hours for behavioral symptoms:None Participation in unit activities & groups: Patient has been participating Start Time: 18:00 Stop Time: 18:20 Mental Status Exam Vitals: Last Vital Signs Temp 97.2 F 11/13/16 19:39 Pulse 79 11/13/16 19:39 Resp 16 11/13/16 19:39 BP 135/67 11/13/16 19:39 Pulse Ox 97 11/13/16 19:39 Height: 1.57 m Weight: 74.6 kg - Mental Status Exam Muscle Strength/Tone: Normal Dressing: Casual Grooming: Good Attitude: Cooperative, Suspicious Motor Activity: Normal Eye Contact: Good Speech: Normal Volume: Normal Rhythm: Appropriate Rhythm Orientation: Oriented X4 Mood: Neutral, Other (frustrated) Rate of Thoughts: Appropriate Rate Thought Organization: [place] Associations: Illogical Abstract Reasoning: Poor abstract reasoning Thought Content: Delusions, Paranoia Perception/Psychotic: Perception Normal Fund of Knowledge: Poor fund of knowledge Memory: Poor-immediate Suicidal Ideation: None Homicidal Ideation: None Insight: Poor Judgement: Poor Impulse Control: Poor - Laboratory Result Diagrams: 11/13/16 05:52 11/13/16 05:52 Laboratory Results - last 24 hr 11/12/16 11/13/16 11/13/16 22:09 05:52 05:52 WBC 7.0 RBC 3.16 L Hgb 10.1 L Hct 32.0 L MCV 101.3 H MCH 32.0 MCHC 31.6 RDW Std Deviation 47.9 Plt Count 189 MPV 10.3 Immature Gran % (Auto) 0.1 Neut % (Auto) 55.9 Lymph % (Auto) 27.7 [place] % (Auto) 9.2 H Eos % (Auto) 6.5 H Baso % (Auto) 0.6 Neut # 3.9 Lymph # 2.0 [place] # 0.7 Eos # 0.5 Baso # 0.0 Abs Immat Gran (auto) 0.01 INR 4.24 H Turbidity Sodium Potassium Chloride Carbon Dioxide Anion Gap BUN Creatinine GFR Calculation BUN/Creatinine Ratio Glucose Calculated Osmolality Calcium Phosphorus Icterus Index Albumin Specimen Hemolysis Stl Cyclospora species Negative Stool Rotavirus A PCR Negative Stool Adenovirus (PCR) Negative Stool Astrovirus (PCR) Negative Stool Campylobacter PCR Negative Stl C.difficile Tox PCR Negative Stool Cryptosporidium PCR Negative Stl E.coli Shiga Toxins Negative Stool E coli O157 PCR N/a Stl Enterotoxigenic E PCR Negative Stool EPEC (PCR) Negative Stool EAEC (PCR) Negative Stool Entamoeba (PCR) Negative Stool Giardia Lamblia PCR Negative Stool Salmonella PCR Negative Stool Sapovirus (PCR) Negative Stl P. shigelloides PCR Negative Stl Shigella/EIEC PCR Negative St Y.enterocolitica PCR Negative Stool Vibrio (PCR) Negative Stl Vibrio cholera PCR Negative Stl Norovirus GI/GII PCR Negative 11/13/16 05:52 WBC RBC Hgb Hct MCV MCH MCHC RDW Std Deviation Plt Count MPV Immature Gran % (Auto) Neut % (Auto) Lymph % (Auto) [place] % (Auto) Eos % (Auto) Baso % (Auto) Neut # Lymph # [place] # Eos # Baso # Abs Immat Gran (auto) INR Turbidity < 20 Sodium 143 Potassium 4.5 Chloride 108 H Carbon Dioxide 28 Anion Gap 7 BUN 28.0 H Creatinine 0.8 GFR Calculation 68 BUN/Creatinine Ratio 35 H Glucose 94 Calculated Osmolality 281 H Calcium 9.4 Phosphorus 3.4 Ict[place]us Index < 2 Albumin 3.6 Specimen Hemolysis < 15 Stl Cyclospora species Stool Rotavirus A PCR Stool Adenovirus (PCR) Stool Astrovirus (PCR) Stool Campylobacter PCR Stl C.difficile Tox PCR Stool Cryptosporidium PCR Stl E.coli Shiga Toxins Stool E coli O157 PCR Stl Enterotoxigenic E PCR Stool EPEC (PCR) Stool EAEC (PCR) Stool Entamoeba (PCR) Stool Giardia Lamblia PCR Stool Salmonella PCR Stool Sapovirus (PCR) Stl P. shigelloides PCR Stl Shigella/EIEC PCR St Y.enterocolitica PCR Stool Vibrio (PCR) Stl Vibrio cholera PCR Stl Norovirus GI/GII PCR Assessment and Plan (1) Major depressive disorder, recurrent, severe with psychotic features Current visit: Yes Status: Acute Hospital Course Summary Disclaimer: The visit summary below is not to be considered part of the above Progress Note. Hospital Course: 11/11/16 12:04 Increase Risperidone to 1mg PO q HS 11/11/16 14:40 Patient is doing well medically. Labs reviewed- pharmacy consulted to manage warfarin. Goal INR 2.0-3.0 given hx of Atrial Fib. (nursing notes state mechanical valve, but I cannot find that on hx or exam). Continue Gabapentin/Dilantin. Need to avoid quinolones if infection concerns given known sz hx. Avoid Tramadol. Continue supportive meds for CAD (? CHF hx- monitor fluid status). 11/12/16 12:00 Continue current meds. Just increased Risperidone yesterday. If insufficient, may be able to tolerate 0.5mg in AM as well. 11/13/16 20:00 Cont current medication. Family meeting tomorrow 11/14/16 at 1700
[2016-11-13] MEDS: MIRTAZAPINE 15 MG TABLET PO SCH (20:03)
[2016-11-13] MEDS: RisperiDONE 1 MG TABLET PO SCH (20:03)
[2016-11-13] MEDS: PANTOPRAZOLE 20 MG TABLET PO SCH (20:04)
[2016-11-13] MEDS: ATORVASTATIN 10 MG TABLET PO SCH (20:04)
[2016-11-14] MEDS: HYDROCODONE/APAP 5mg/325mg TABLET PO PRN (05:29)
[2016-11-14] MEDS: ASPIRIN 81 MG CHEWABLE TABLET PO SCH (08:42)
[2016-11-14] MEDS: TRAVOPROST 0.004% EYE DROPS 2.5ml EACH EYE SCH ×3 (08:42→23:43)
[2016-11-14] MEDS: PHENYTOIN 100 MG CAPSULE PO SCH ×3 (08:42→23:42)
[2016-11-14] MEDS: LISINOPRIL 5 MG TABLET PO SCH (08:43)
[2016-11-14] MEDS: DULOXETINE 60 MG CAPSULE PO SCH (08:43)
[2016-11-14] MEDS: TOPIRAMATE 25 MG TABLET PO SCH (08:43)
[2016-11-14] MEDS: GABAPENTIN 100 MG CAPSULE PO SCH ×3 (08:43→23:42)
--- NOTE | 2016-11-14 09:24 | Pharmacy Consult ---
Pharmacy Consult-Warfarin - Laboratory Information 11/09/16 11/11/16 11/13/16 17:59 05:11 05:52 INR 2.37 H 2.84 H 4.24 H 11/14/16 08:16 INR 3.70 H - Consult Information 86 y.o. F with history of A.Fib and chronic anti-coagulation with warfarin. goal INR range= 2.0 to 3.0. Home warfarin dose= 5 mg po daily. Today's INR is supra-therapeutic at 3.7. Will give no Warfarin today. Pharmacy will monitor and adjust as needed. Thank you for the protocol, Carrie Horta [facility] Date INR dose 11/09 2.37 5 mg 11/10 --- 5 mg 11/11 2.84 5 mg 11/12 --- 5 mg 11/13 4.24 no dose 11/14 3.7 no dose
[2016-11-14] MEDS: ATORVASTATIN 10 MG TABLET PO SCH ×2 (19:45→23:42)
[2016-11-14] MEDS: RisperiDONE 1 MG TABLET PO SCH (19:46)
[2016-11-14] MEDS: MIRTAZAPINE 15 MG TABLET PO SCH ×2 (19:46→23:43)
[2016-11-14] MEDS: PANTOPRAZOLE 20 MG TABLET PO SCH ×2 (19:47→23:43)
[2016-11-14] MEDS: LORazepam 0.5 MG TABLET PO PRN (19:47)
--- NOTE | 2016-11-14 22:50 | Neuropsych Progress Note ---
[facility] Subjective Date: 11/14/16 - Sujective/Severity of Illness Medications: Acetaminophen/Hydrocodone Bitart ([place] 5/325) 1 tab PO Q6H PRN PRN Reason: P Last Admin: 11/14/16 05:29 Dose: 1 tab Aspirin (Asa) 81 mg PO DAILY [facility] Last Admin: 11/14/16 08:42 Dose: 81 mg Atorvastatin Calcium (Lipitor) 10 mg PO 2100 [facility] Last Admin: 11/14/16 19:45 Dose: 10 mg Diltiazem HCl (Cardizem Cd) 180 mg PO DAILY [facility] Last Admin: 11/14/16 08:42 Dose: 180 mg Dorzolamide/Timolol (Cosopt Ocumeter Plus) 1 drops RIGHT EYE BID [facility] Last Admin: 11/14/16 19:47 Dose: 1 drops Duloxetine HCl (Cymbalta) 60 mg PO DAILY [facility] Last Admin: 11/14/16 08:43 Dose: 60 mg Gabapentin (Neurontin) 100 mg PO BID [facility] Last Admin: 11/14/16 19:46 Dose: 100 mg Haloperidol (Haldol) 0.5 mg PO Q6H PRN PRN Reason: Extreme agitation Haloperidol Lactate (Haldol) 0.5 mg IM Q6H PRN PRN Reason: Extreme agitation Hydroxyzine HCl (Atarax) 25 mg PO BID PRN PRN Reason: Anxiety Lisinopril (Prinivil) 5 mg PO DAILY [facility] Last Admin: 11/14/16 08:43 Dose: 5 mg Loperamide HCl (Imodium) 2 - 4 mg PO Q4H PRN PRN Reason: LOOSE STOOLS Last Admin: 11/12/16 21:29 Dose: 4 mg Lorazepam (Ativan) 0.5 mg PO Q6H PRN PRN Reason: Extreme agitation Last Admin: 11/14/16 19:47 Dose: 0.5 mg Lorazepam (Ativan Inj) 0.5 mg IM Q6H PRN PRN Reason: Extreme agitation Metoprolol Succinate (Toprol Xl) 50 mg PO DAILY [facility] Last Admin: 11/14/16 08:43 Dose: 50 mg Mirtazapine (Remeron) 7.5 mg PO 2100 [facility] Last Admin: 11/14/16 19:46 Dose: 7.5 mg Pantoprazole Sodium (Protonix) 20 mg PO 2100 [facility] Last Admin: 11/14/16 19:47 Dose: 20 mg Phenytoin Sodium (Dilantin) 200 mg PO WB [facility] Last Admin: 11/14/16 08:42 Dose: 200 mg Phenytoin Sodium (Dilantin) 300 mg PO 2100 [facility] Last Admin: 11/14/16 19:45 Dose: 300 mg Risperidone (Risperdal) 0.25 mg PO DAILY [facility] Last Admin: 11/14/16 08:44 Dose: 0.25 mg Risperidone (Risperdal) 1 mg PO 2100 [facility] Last Admin: 11/14/16 19:46 Dose: 1 mg Topiramate (Topamax) 25 mg PO DAILY [facility] Last Admin: 11/14/16 08:43 Dose: 25 mg Travoprost (Travatan Z) 1 drops EACH EYE HS [facility] Last Admin: 11/14/16 19:48 Dose: 1 drops Warfarin Sodium (Coumadin Protocol) 0 [facility] NOTE [facility] Subjective: Patient presented with paranoid ideation and she is currently on Risperidone 0.25mg daily and 1mg q HS. She is also on Mirtazapine 7.5 mg q HS. Family meeting with patient's daughter: In attendance were patient's daughter Jessica and Carter who is patient's grandson and the SW. Family reports that patient's symptoms began about 2014 after she had several hip surgeries from falls. She began having memory problems and later developed poor executive function where patient was unable to balance her check book. These symptom were subsequently followed by overt suspiciousness where she had paranoid ideation about her neighbors. Family reports that patient had history of depression when she was younger and at one time was "addicted" to pain medication. Family would like for patient to be treated with anti-psychotic to control the psychotic symptoms Today, patient was seen to be alert and oriented to person, place and time. She continues to have paranoid ideation. Associating Symptoms: Sleep: 7 hours; Appetite:good Compliance: good; Adverse Effects: none. There is no acute or chronic EPS PRN Meds in the last 24 hours for behavioral symptoms:None Participation in unit activities & groups: Patient has been participating Start Time: 19:00 Stop Time: 10:15 Mental Status Exam Vitals: Last Vital Signs Temp 97.8 F 11/14/16 20:14 Pulse 78 11/14/16 20:14 Resp 20 11/14/16 20:14 BP 128/49 11/14/16 20:14 Pulse Ox 99 11/14/16 20:14 Height: 1.57 m Weight: 74.6 kg - Mental Status Exam Muscle Strength/Tone: Weak Dressing: Casual Grooming: Good Attitude: Cooperative, Suspicious Motor Activity: Normal Eye Contact: Good Speech: Normal Volume: Normal Rhythm: Appropriate Rhythm Orientation: Oriented to person, Oriented to place, Oriented to time Mood: Neutral, Other (frustrated) Rate of Thoughts: Appropriate Rate Thought Organization: [place] Associations: Illogical Abstract Reasoning: Poor abstract reasoning Thought Content: Delusions, Paranoia Perception/Psychotic: Perception Normal Fund of Knowledge: Poor fund of knowledge Memory: Poor-immediate Suicidal Ideation: None Homicidal Ideation: None Insight: Poor Judgement: Poor Impulse Control: Poor - Laboratory Result Diagrams: 11/13/16 05:52 11/13/16 05:52 Laboratory Results - last 24 hr 11/14/16 08:16 INR 3.70 H Assessment and Plan (1) Major depressive disorder, recurrent, severe with psychotic features Current visit: Yes Status: Acute Hospital Course Summary Disclaimer: The visit summary below is not to be considered part of the above Progress Note. Hospital Course: 11/11/16 12:04 Increase Risperidone to 1mg PO q HS 11/11/16 14:40 Patient is doing well medically. Labs reviewed- pharmacy consulted to manage warfarin. Goal INR 2.0-3.0 given hx of Atrial Fib. (nursing notes state mechanical valve, but I cannot find that on hx or exam). Continue Gabapentin/Dilantin. Need to avoid quinolones if infection concerns given known sz hx. Avoid Tramadol. Continue supportive meds for CAD (? CHF hx- monitor fluid status). 11/12/16 12:00 Continue current meds. Just increased Risperidone yesterday. If insufficient, may be able to tolerate 0.5mg in AM as well. 11/13/16 20:00 Cont current medication. Family meeting tomorrow 11/14/16 at 1700 11/14/16 22:51 Increase Risperidone to 1mg BID
[2016-11-15] MEDS: HYDROCODONE/APAP 5mg/325mg TABLET PO PRN (04:33)
[2016-11-15] MEDS ORDERED: RisperiDONE 1 MG TABLET PO SCH (09:00)
--- NOTE | 2016-11-15 10:08 | Pharmacy Consult ---
Pharmacy Consult-Warfarin - Laboratory Information 11/09/16 11/11/16 11/13/16 17:59 05:11 05:52 INR 2.37 H 2.84 H 4.24 H 11/14/16 11/15/16 08:16 09:14 INR 3.70 H 2.00 H 86 y.o. F with history of A.Fib and chronic anti-coagulation with warfarin. goal INR range= 2.0 to 3.0. Home warfarin dose= 5 mg po daily. Today's INR is therapeutic at 2.0. I ordered Warfarin 3 mg today. The Pharmacy will continue to monitor and adjust the warfarin as needed. Thank you for the protocol, Prieto Guadarrama [facility] Date INR dose 11/09 2.37 5 mg 11/10 --- 5 mg 11/11 2.84 5 mg 11/12 --- 5 mg 11/13 4.24 no dose 11/14 3.7 no dose 11/15 2.0 Plan 3 mg
[2016-11-15] MEDS: PHENYTOIN 100 MG CAPSULE PO SCH ×2 (10:43→20:00)
[2016-11-15] MEDS: ASPIRIN 81 MG CHEWABLE TABLET PO SCH (10:43)
[2016-11-15] MEDS: GABAPENTIN 100 MG CAPSULE PO SCH ×2 (10:44→19:58)
[2016-11-15] MEDS: DULOXETINE 60 MG CAPSULE PO SCH (10:44)
[2016-11-15] MEDS: LISINOPRIL 5 MG TABLET PO SCH (10:45)
[2016-11-15] MEDS: TOPIRAMATE 25 MG TABLET PO SCH (10:45)
--- NOTE | 2016-11-15 13:47 | Progress Note ---
Subjective: Cristine is seen this afternoon while resting in bed. She does answer verbally to questions, however, does not open her eyes during examination. She answers "no" to all questions asked. Nursing staff did report are reviewed this morning that she had some increase behaviors. A urinalysis was rechecked that was unremarkable. Did review the chart note that patient has been receiving [place] for pain as this may attribute to mental status changes. Vital signs stable. Objective Vital signs: Temperature 98 F 11/15/16 08:00 Pulse Rate 73 11/15/16 08:00 Respiratory Rate 14 11/15/16 08:00 Blood Pressure 148/67 H 11/15/16 08:00 Pulse Oximetry 99 11/15/16 08:00 Oxygen Delivery Method Room Air Body Mass Index: 30.0 - Constitutional Present: no acute distress - Routine HEENT Exam Eye: Present: EOMI ENT: Present: mucous membranes moist, dentition normal - Routine Respiratory Exam Present: CTA bilaterally. Absent: wheezes - Routine Cardiovascular Exam Present: RRR, S1, S2. Absent: murmur - Routine Abdominal Exam Present: soft, normoactive bowel sounds, non distended. Absent: tenderness - Routine Extremities Exam Present: edema (trace bilateral lower ext) - Routine Back/Spine/Pelvis Exam Back/Spine: Present: full ROM - Routine Skin Exam Present: intact, dry, warm - Routine Neurological Exam Present: CN II-XII intact, altered mental status, moving all extremities - Routine Lymphatic Exam Lymphatic: Absent: adenopathy - Routine Psychiatric Exam Present: paranoid Results - Labs CBC & Chem 7: 11/13/16 05:52 11/13/16 05:52 Assessment and Plan (1) Major depressive disorder, recurrent, severe with psychotic features Current visit: Yes Status: Acute (2) HTN (hypertension) Current visit: Yes Status: Chronic (3) Atrial fibrillation Current visit: Yes Status: Chronic (4) Chronic anticoagulation Current visit: Yes Status: Chronic (5) H/O: stroke Current visit: Yes Status: Chronic (6) History of seizures Current visit: Yes Status: Chronic Assessment and Plan: 11/15/16 Major neurocognitive disorder Paranoia Atrial fibrillation Hypertension. Coronary artery disease. Irritable bowel syndrome. Hypercholesterolemia Osteoarthritis History of colon cancer and bladder cancer. History of CVA. History of seizures Plan Overall doing well medically. Urinalysis was rechecked this morning and it was negative. Labs reviewed- pharmacy consulted to manage warfarin. Goal INR 2.0-3.0 given hx of Atrial Fib. INR today remains therapeutic at 2.0. This is managed by pharmacy Would recommend decreasing the amount of [place] if possible as this may contribute to her encephalopathy, mental status changes. May consider scheduled Tylenol if pain is an issue. Given patients history of seizures. Would recommend avoiding tramadol as this could lower the seizure threshold Sepsis Assessment - Evaluation Sepsis screening result: No Definite Risk Hospital Course Summary Disclaimer: The visit summary below is not to be considered part of the above Progress Note. Hospital Course: 11/11/16 12:04 Increase Risperidone to 1mg PO q HS 11/11/16 14:40 Patient is doing well medically. Labs reviewed- pharmacy consulted to manage warfarin. Goal INR 2.0-3.0 given hx of Atrial Fib. (nursing notes state mechanical valve, but I cannot find that on hx or exam). Continue Gabapentin/Dilantin. Need to avoid quinolones if infection concerns given known sz hx. Avoid Tramadol. Continue supportive meds for CAD (? CHF hx- monitor fluid status). 11/12/16 12:00 Continue current meds. Just increased Risperidone yesterday. If insufficient, may be able to tolerate 0.5mg in AM as well. 11/13/16 20:00 Cont current medication. Family meeting tomorrow 11/14/16 at 1700 11/14/16 22:51 Increase Risperidone to 1mg BID 11/15/16 13:53 11/15 Overall doing well medically. Urinalysis was rechecked this morning and it was negative. Labs reviewed- pharmacy consulted to manage warfarin. Goal INR 2.0-3.0 given hx of Atrial Fib. INR today remains therapeutic at 2.0. This is managed by pharmacy Would recommend decreasing the amount of [place] if possible as this may contribute to her encephalopathy, mental status changes. May consider scheduled Tylenol if pain is an issue. Given patients history of seizures. Would recommend avoiding tramadol as this could lower the seizure threshold
[2016-11-15] MEDS ORDERED: WARFARIN 3 MG TABLET PO ONE (18:00)
[2016-11-15] MEDS: TRAVOPROST 0.004% EYE DROPS 2.5ml EACH EYE SCH (19:57)
[2016-11-15] MEDS: ATORVASTATIN 10 MG TABLET PO SCH (19:58)
[2016-11-15] MEDS: MIRTAZAPINE 15 MG TABLET PO SCH (19:59)
[2016-11-15] MEDS: PANTOPRAZOLE 20 MG TABLET PO SCH (19:59)
[2016-11-15] MEDS: RisperiDONE 1 MG TABLET PO SCH (19:59)
--- NOTE | 2016-11-15 21:55 | Neuropsych Progress Note ---
[facility] Subjective Date: 11/15/16 - Sujective/Severity of Illness Medications: Acetaminophen/Hydrocodone Bitart ([place] 5/325) 1 tab PO Q6H PRN PRN Reason: P Last Admin: 11/15/16 04:33 Dose: 1 tab Aspirin (Asa) 81 mg PO DAILY [facility] Last Admin: 11/15/16 10:43 Dose: 81 mg Atorvastatin Calcium (Lipitor) 10 mg PO 2100 [facility] Last Admin: 11/15/16 19:58 Dose: 10 mg Diltiazem HCl (Cardizem Cd) 180 mg PO DAILY [facility] Last Admin: 11/15/16 10:43 Dose: 180 mg Dorzolamide/Timolol (Cosopt Ocumeter Plus) 1 drops RIGHT EYE BID [facility] Last Admin: 11/15/16 19:57 Dose: 1 drops Duloxetine HCl (Cymbalta) 60 mg PO DAILY [facility] Last Admin: 11/15/16 10:44 Dose: 60 mg Gabapentin (Neurontin) 100 mg PO BID [facility] Last Admin: 11/15/16 19:58 Dose: 100 mg Haloperidol (Haldol) 0.5 mg PO Q6H PRN PRN Reason: Extreme agitation Haloperidol Lactate (Haldol) 0.5 mg IM Q6H PRN PRN Reason: Extreme agitation Hydroxyzine HCl (Atarax) 25 mg PO BID PRN PRN Reason: Anxiety Lisinopril (Prinivil) 5 mg PO DAILY [facility] Last Admin: 11/15/16 10:45 Dose: 5 mg Loperamide HCl (Imodium) 2 - 4 mg PO Q4H PRN PRN Reason: LOOSE STOOLS Last Admin: 11/12/16 21:29 Dose: 4 mg Lorazepam (Ativan) 0.5 mg PO Q6H PRN PRN Reason: Extreme agitation Last Admin: 11/14/16 19:47 Dose: 0.5 mg Lorazepam (Ativan Inj) 0.5 mg IM Q6H PRN PRN Reason: Extreme agitation Metoprolol Succinate (Toprol Xl) 50 mg PO DAILY [facility] Last Admin: 11/15/16 10:45 Dose: 50 mg Mirtazapine (Remeron) 7.5 mg PO 2100 [facility] Last Admin: 11/15/16 19:59 Dose: 7.5 mg Pantoprazole Sodium (Protonix) 20 mg PO 2100 [facility] Last Admin: 11/15/16 19:59 Dose: 20 mg Phenytoin Sodium (Dilantin) 200 mg PO WB [facility] Last Admin: 11/15/16 10:43 Dose: 200 mg Phenytoin Sodium (Dilantin) 300 mg PO 2100 [facility] Last Admin: 11/15/16 20:00 Dose: 300 mg Risperidone (Risperdal) 1 mg PO 2099 [facility] Last Admin: 11/15/16 19:59 Dose: 1 mg Topiramate (Topamax) 25 mg PO DAILY [facility] Last Admin: 11/15/16 10:45 Dose: 25 mg Travoprost (Travatan Z) 1 drops EACH EYE HS [facility] Last Admin: 11/15/16 19:57 Dose: 1 drops Warfarin Sodium (Coumadin Protocol) 0 [facility] NOTE [facility] Subjective: Patient presented with paranoid ideation and she is currently on Risperidone 0.25mg daily and 1mg q HS. She is also on Mirtazapine 7.5 mg q HS. Today, patient was seen to be sleepy and staff reports that she has been sleepy all day and could be barely stay awake for group activities . Review of lab showed INR of 2.0 this morning. Her other medications include Diltiazem, Phenytoin, Metoprolo, Gabapentin, Mirtazapine and Risperidone. The dose of Risperidone was increased to 1mg BID, but this may not be the only medication making her sleepy. Associating Symptoms: Sleep: 8.5 hours; Appetite:good Compliance: good; Adverse Effects: none. There is no acute or chronic EPS PRN Meds in the last 24 hours for behavioral symptoms:None Participation in unit activities & groups: Patient was unable to participate today due to sedation Start Time: 19:00 Stop Time: 19:15 Mental Status Exam Vitals: Last Vital Signs Temp 97.0 F 11/15/16 19:54 Pulse 74 11/15/16 19:54 Resp 14 11/15/16 19:54 BP 113/50 11/15/16 19:54 Pulse Ox 97 11/15/16 19:54 Height: 1.57 m Weight: 74.6 kg - Mental Status Exam Muscle Strength/Tone: Weak Dressing: Casual Grooming: Good Attitude: Cooperative, Suspicious Motor Activity: Retardation Eye Contact: Poor Speech: Slowed Volume: Normal Rhythm: Appropriate Rhythm Orientation: Oriented to person, Oriented to place, Oriented to time Mood: Neutral, Other (frustrated) Rate of Thoughts: Appropriate Rate Thought Organization: [place] Associations: Illogical Abstract Reasoning: Poor abstract reasoning Thought Content: Delusions, Paranoia Perception/Psychotic: Perception Normal Fund of Knowledge: Poor fund of knowledge Memory: Poor-immediate Suicidal Ideation: None Homicidal Ideation: None Insight: Poor Judgement: Poor Impulse Control: Poor - Laboratory Result Diagrams: 11/13/16 05:52 11/13/16 05:52 Laboratory Results - last 24 hr 11/15/16 11/15/16 09:14 11:35 INR 2.00 H Ur Collection Type Urine, clean catch Urine Color Yellow Urine Clarity Clear Urine pH 6.5 Ur Specific [place] 1.010 L Urine Protein Negative Urine Glucose (UA) Negative Urine Ketones Negative Urine Occult Blood Negative Urine Nitrate Negative Urine Bilirubin Negative Urine Urobilinogen 0.2 Ur Leukocyte Esterase Negative Urinalysis Comment Microscopic not ind. Assessment and Plan (1) Major depressive disorder, recurrent, severe with psychotic features Current visit: Yes Status: Acute Hospital Course Summary Disclaimer: The visit summary below is not to be considered part of the above Progress Note. Hospital Course: 11/11/16 12:04 Increase Risperidone to 1mg PO q HS 11/11/16 14:40 Patient is doing well medically. Labs reviewed- pharmacy consulted to manage warfarin. Goal INR 2.0-3.0 given hx of Atrial Fib. (nursing notes state mechanical valve, but I cannot find that on hx or exam). Continue Gabapentin/Dilantin. Need to avoid quinolones if infection concerns given known sz hx. Avoid Tramadol. Continue supportive meds for CAD (? CHF hx- monitor fluid status). 11/12/16 12:00 Continue current meds. Just increased Risperidone yesterday. If insufficient, may be able to tolerate 0.5mg in AM as well. 11/13/16 20:00 Cont current medication. Family meeting tomorrow 11/14/16 at 1700 11/14/16 22:51 Increase Risperidone to 1mg BID 11/15/16 13:53 11/15 Overall doing well medically. Urinalysis was rechecked this morning and it was negative. Labs reviewed- pharmacy consulted to manage warfarin. Goal INR 2.0-3.0 given hx of Atrial Fib. INR today remains therapeutic at 2.0. This is managed by pharmacy Would recommend decreasing the amount of [place] if possible as this may contribute to her encephalopathy, mental status changes. May consider scheduled Tylenol if pain is an issue. Given patients history of seizures. Would recommend avoiding tramadol as this could lower the seizure threshold 11/15/16 22:25 Decrease dose of Risperidone to 1mg q Hs
[2016-11-16] MEDS ORDERED: HALOPERIDOL 1 MG/0.5 ML ORAL LIQUID PO PRN (11:27)
[2016-11-16] MEDS: LORazepam INTENSOL 1mg/0.5ml ORAL LIQUID PO PRN (11:31)
[2016-11-16] MEDS ORDERED: WARFARIN 4 MG TABLET PO SCH (12:00)
[2016-11-16] MEDS: GABAPENTIN 100 MG CAPSULE PO SCH ×3 (13:39→21:44)
[2016-11-16] MEDS: TOPIRAMATE 25 MG TABLET PO SCH (13:39)
[2016-11-16] MEDS: LISINOPRIL 5 MG TABLET PO SCH (13:39)
[2016-11-16] MEDS: ASPIRIN 81 MG CHEWABLE TABLET PO SCH (13:39)
[2016-11-16] MEDS: PHENYTOIN 100 MG CAPSULE PO SCH ×3 (13:39→21:43)
[2016-11-16] MEDS: DULOXETINE 60 MG CAPSULE PO SCH (13:39)
--- NOTE | 2016-11-16 19:19 | Neuropsych Progress Note ---
[facility] Subjective Date: 11/16/16 - Sujective/Severity of Illness Medications: Acetaminophen/Hydrocodone Bitart ([place] 5/325) 1 tab PO Q6H PRN PRN Reason: P Last Admin: 11/15/16 04:33 Dose: 1 tab Aspirin (Asa) 81 mg PO DAILY [facility] Last Admin: 11/16/16 13:39 Dose: Not Given Atorvastatin Calcium (Lipitor) 10 mg PO 2100 [facility] Last Admin: 11/15/16 19:58 Dose: 10 mg Diltiazem HCl (Cardizem Cd) 180 mg PO DAILY [facility] Last Admin: 11/16/16 13:39 Dose: Not Given Dorzolamide/Timolol (Cosopt Ocumeter Plus) 1 drops RIGHT EYE BID [facility] Last Admin: 11/16/16 13:39 Dose: Not Given Duloxetine HCl (Cymbalta) 60 mg PO DAILY [facility] Last Admin: 11/16/16 13:39 Dose: Not Given Gabapentin (Neurontin) 100 mg PO BID [facility] Last Admin: 11/16/16 13:39 Dose: Not Given Haloperidol (Haldol) 0.5 mg PO Q6H PRN PRN Reason: Extreme agitation Haloperidol Decanoate (Haldol Liquid) 0.5 mg PO Q6H PRN PRN Reason: Agitation Haloperidol Lactate (Haldol) 0.5 mg IM Q6H PRN PRN Reason: Extreme agitation Last Admin: 11/16/16 15:48 Dose: 0.5 mg Hydroxyzine HCl (Atarax) 25 mg PO BID PRN PRN Reason: Anxiety Lisinopril (Prinivil) 5 mg PO DAILY [facility] Last Admin: 11/16/16 13:39 Dose: Not Given Loperamide HCl (Imodium) 2 - 4 mg PO Q4H PRN PRN Reason: LOOSE STOOLS Last Admin: 11/12/16 21:29 Dose: 4 mg Lorazepam (Ativan) 0.5 mg PO Q6H PRN PRN Reason: Extreme agitation Last Admin: 11/14/16 19:47 Dose: 0.5 mg Lorazepam (Ativan Inj) 0.5 mg IM Q6H PRN PRN Reason: Extreme agitation Last Admin: 11/16/16 15:47 Dose: 0.5 mg Lorazepam (Ativan Intensol) 0.5 mg PO Q6H PRN PRN Reason: Agitation Metoprolol Succinate (Toprol Xl) 50 mg PO DAILY [facility] Last Admin: 11/16/16 13:40 Dose: Not Given Mirtazapine (Remeron) 7.5 mg PO 2100 [facility] Last Admin: 11/15/16 19:59 Dose: 7.5 mg Pantoprazole Sodium (Protonix) 20 mg PO 2100 [facility] Last Admin: 11/15/16 19:59 Dose: 20 mg Phenytoin Sodium (Dilantin) 200 mg PO WB [facility] Last Admin: 11/16/16 13:39 Dose: Not Given Phenytoin Sodium (Dilantin) 300 mg PO 2100 [facility] Last Admin: 11/15/16 20:00 Dose: 300 mg Risperidone (Risperdal) 1 mg PO 2100 [facility] Last Admin: 11/15/16 19:59 Dose: 1 mg Topiramate (Topamax) 25 mg PO DAILY [facility] Last Admin: 11/16/16 13:39 Dose: Not Given Travoprost (Travatan Z) 1 drops EACH EYE HS [facility] Last Admin: 11/15/16 19:57 Dose: 1 drops Warfarin Sodium (Coumadin Protocol) 0 MC NOTE [facility] Subjective: Pt seen and chart examined. Nursing reports pt has been irritable and angry today. She was yelling in her room and cursing at staff. Paranoid at times. On face to face the pt is irritable. She states she wants to go home and is angry that her daughter has not talked to her. She denies any S/I. She reports tolerating her meds. Start Time: 18:45 Stop Time: 19:00 Mental Status Exam Vitals: Last Vital Signs Temp 99.0 F 11/16/16 16:00 Pulse 91 11/16/16 16:00 Resp 15 11/16/16 08:00 BP 151/71 H 11/16/16 16:00 Pulse Ox 16 L 11/16/16 16:00 Height: 1.57 m Weight: 74.6 kg - Mental Status Exam Muscle Strength/Tone: Weak Dressing: Casual Grooming: Good Attitude: Uncooperative, Guarded Motor Activity: Retardation Eye Contact: Poor Speech: Slowed Volume: Normal Rhythm: Appropriate Rhythm Orientation: Oriented to person, Oriented to place, Oriented to time Mood: Irritable, Other (frustrated) Affect: Angry Rate of Thoughts: Appropriate Rate Thought Organization: [place] Associations: Illogical Abstract Reasoning: Poor abstract reasoning Thought Content: Delusions, Paranoia Perception/Psychotic: Perception Normal Fund of Knowledge: Poor fund of knowledge Memory: Poor-immediate Suicidal Ideation: None Homicidal Ideation: None Insight: Poor Judgement: Poor Impulse Control: Poor - Laboratory Result Diagrams: 11/13/16 05:52 11/13/16 05:52 Laboratory Results - last 24 hr 11/16/16 06:58 INR 1.90 H Assessment and Plan (1) Major depressive disorder, recurrent, severe with psychotic features Current visit: Yes Status: Acute Hospital Course Summary Disclaimer: The visit summary below is not to be considered part of the above Progress Note. Hospital Course: 11/11/16 12:04 Increase Risperidone to 1mg PO q HS 11/11/16 14:40 Patient is doing well medically. Labs reviewed- pharmacy consulted to manage warfarin. Goal INR 2.0-3.0 given hx of Atrial Fib. (nursing notes state mechanical valve, but I cannot find that on hx or exam). Continue Gabapentin/Dilantin. Need to avoid quinolones if infection concerns given known sz hx. Avoid Tramadol. Continue supportive meds for CAD (? CHF hx- monitor fluid status). 11/12/16 12:00 Continue current meds. Just increased Risperidone yesterday. If insufficient, may be able to tolerate 0.5mg in AM as well. 11/13/16 20:00 Cont current medication. Family meeting tomorrow 11/14/16 at 1700 11/14/16 22:51 Increase Risperidone to 1mg BID 11/15/16 13:53 11/15 Overall doing well medically. Urinalysis was rechecked this morning and it was negative. Labs reviewed- pharmacy consulted to manage warfarin. Goal INR 2.0-3.0 given hx of Atrial Fib. INR today remains therapeutic at 2.0. This is managed by pharmacy Would recommend decreasing the amount of [place] if possible as this may contribute to her encephalopathy, mental status changes. May consider scheduled Tylenol if pain is an issue. Given patients history of seizures. Would recommend avoiding tramadol as this could lower the seizure threshold 11/15/16 22:25 Decrease dose of Risperidone to 1mg q Hs 11/16/16 19:18 Increase Remeron to 15mg at HS
[2016-11-16] MEDS: ATORVASTATIN 10 MG TABLET PO SCH ×2 (19:41→21:43)
[2016-11-16] MEDS: RisperiDONE 1 MG TABLET PO SCH ×2 (19:42→21:44)
[2016-11-16] MEDS: PANTOPRAZOLE 20 MG TABLET PO SCH ×2 (19:42→21:44)
[2016-11-16] MEDS: HYDROCODONE/APAP 5mg/325mg TABLET PO PRN (19:42)
[2016-11-16] MEDS: MIRTAZAPINE 15 MG TABLET PO SCH ×2 (19:43→21:44)
[2016-11-16] MEDS: TRAVOPROST 0.004% EYE DROPS 2.5ml EACH EYE SCH (21:44)
--- NOTE | 2016-11-17 08:31 | Pharmacy Consult ---
Pharmacy Consult-Warfarin - Laboratory Information 11/09/16 11/11/16 11/13/16 17:59 05:11 05:52 INR 2.37 H 2.84 H 4.24 H 11/14/16 11/15/16 11/16/16 08:16 09:14 06:58 INR 3.70 H 2.00 H 1.90 H 11/17/16 06:34 INR 2.00 H 86 y.o. F with history of A.Fib and chronic anti-coagulation with warfarin. goal INR range= 2.0 to 3.0. Home warfarin dose= 5 mg po daily. Date INR dose 11/09 2.37 5 mg 11/10 --- 5 mg 11/11 2.84 5 mg 11/12 --- 5 mg 11/13 4.24 no dose 11/14 3.7 no dose 11/15 2.0 3 mg 11/16 1.9 4 mg 11/17 2.0 Plan 4 mg daily Today's INR is therapeutic at 2.0. I ordered Warfarin 4 mg po daily and INR's on Sunday and . The Pharmacy will continue to monitor and adjust the warfarin as needed. Thank you for the warfarin dosing protocol, Prieto Guadarrama [facility]
--- NOTE | 2016-11-17 08:50 | Progress Note ---
<Ashly Pan V - Last Filed: 11/17/16 08:46> Subjective: Cristine is seen this morning while sleeping in bed. She is comfortably breathing on room air and does not appear to be in any acute distress. He does not arouse during examination. Chart reviewed. Patient slept approximately 8 hours overnight. Nursing staff did report some paranoia and augmented to behaviors yesterday. Objective Vital signs: Temperature 97.0 F 11/16/16 19:27 Pulse Rate 96 11/16/16 19:27 Respiratory Rate 20 11/16/16 19:27 Blood Pressure 130/58 11/16/16 19:27 Pulse Oximetry 98 11/16/16 19:27 Oxygen Delivery Method Room Air Weight: 32.885 kg - Constitutional Present: no acute distress - Routine HEENT Exam Head: Present: normocephalic, atraumatic - Routine Respiratory Exam Present: CTA bilaterally - Routine Cardiovascular Exam Present: RRR, S1, S2 - Routine Abdominal Exam Present: soft - Routine Skin Exam Present: intact, dry, warm - Routine Neurological Exam sleeping Results - Labs CBC & Chem 7: 11/13/16 05:52 11/13/16 05:52 Assessment and Plan (1) Major depressive disorder, recurrent, severe with psychotic features Current visit: Yes Status: Acute (2) HTN (hypertension) Current visit: Yes Status: Chronic (3) Atrial fibrillation Current visit: Yes Status: Chronic (4) Chronic anticoagulation Current visit: Yes Status: Chronic (5) H/O: stroke Current visit: Yes Status: Chronic (6) History of seizures Current visit: Yes Status: Chronic Assessment and Plan: 11/17/16 Major neurocognitive disorder Paranoia Atrial fibrillation Hypertension. Coronary artery disease. Irritable bowel syndrome. Hypercholesterolemia Osteoarthritis History of colon cancer and bladder cancer. History of CVA. History of seizures Plan Overall doing well medically. Labs reviewed- pharmacy consulted to manage warfarin. Goal INR 2.0-3.0 given hx of Atrial Fib. INR today remains therapeutic at 2.0. This is managed by pharmacy Tylenol as needed for pain control. Continued psychiatric care as per Dr Rousseau Sepsis Assessment - Evaluation Sepsis screening result: No Definite Risk Hospital Course Summary Disclaimer: The visit summary below is not to be considered part of the above Progress Note. Hospital Course: 11/11/16 12:04 Increase Risperidone to 1mg PO q HS 11/11/16 14:40 Patient is doing well medically. Labs reviewed- pharmacy consulted to manage warfarin. Goal INR 2.0-3.0 given hx of Atrial Fib. (nursing notes state mechanical valve, but I cannot find that on hx or exam). Continue Gabapentin/Dilantin. Need to avoid quinolones if infection concerns given known sz hx. Avoid Tramadol. Continue supportive meds for CAD (? CHF hx- monitor fluid status). 11/12/16 12:00 Continue current meds. Just increased Risperidone yesterday. If insufficient, may be able to tolerate 0.5mg in AM as well. 11/13/16 20:00 Cont current medication. Family meeting tomorrow 11/14/16 at 1700 11/14/16 22:51 Increase Risperidone to 1mg BID 11/15/16 13:53 11/15 Overall doing well medically. Urinalysis was rechecked this morning and it was negative. Labs reviewed- pharmacy consulted to manage warfarin. Goal INR 2.0-3.0 given hx of Atrial Fib. INR today remains therapeutic at 2.0. This is managed by pharmacy Would recommend decreasing the amount of [place] if possible as this may contribute to her encephalopathy, mental status changes. May consider scheduled Tylenol if pain is an issue. Given patients history of seizures. Would recommend avoiding tramadol as this could lower the seizure threshold 11/15/16 22:25 Decrease dose of Risperidone to 1mg q Hs 11/16/16 19:18 Increase Remeron to 15mg at HS <Devorah Olivarez - Last Filed: 11/17/16 21:13> Objective Vital signs: Temperature 97.1 F 11/17/16 19:26 Pulse Rate 80 11/17/16 19:26 Respiratory Rate 18 11/17/16 19:26 Blood Pressure 120/49 11/17/16 19:26 Pulse Oximetry 97 11/17/16 19:26 Oxygen Delivery Method Room Air Results - Labs CBC & Chem 7: 11/13/16 05:52 11/13/16 05:52 Assessment and Plan (1) Major depressive disorder, recurrent, severe with psychotic features Current visit: Yes Status: Acute (2) HTN (hypertension) Current visit: Yes Status: Chronic (3) Atrial fibrillation Current visit: Yes Status: Chronic (4) Chronic anticoagulation Current visit: Yes Status: Chronic (5) H/O: stroke Current visit: Yes Status: Chronic (6) History of seizures Current visit: Yes Status: Chronic Assessment and Plan: I have independently evaluated and examined this patient. I reviewed the chart, the patient's history, and the CORE DRILL OPERATOR/PA's documented findings as above. We discussed and formulated the assessment and plan as above with additions as below: Cristine denied dyspnea but complained of pain and decreased range of motion at her right shoulder. Exam demonstrates decreased abduction at the right shoulder. Respirations are nonlabored with clear breath sounds Trace edema at the ankles. Probable frozen shoulder-add lidocaine patch topically for pain control. Hospital Course Summary Disclaimer: The visit summary below is not to be considered part of the above Progress Note.
[2016-11-17] MEDS: ASPIRIN 81 MG CHEWABLE TABLET PO SCH (09:16)
[2016-11-17] MEDS: GABAPENTIN 100 MG CAPSULE PO SCH ×2 (09:16→20:00)
[2016-11-17] MEDS: PHENYTOIN 100 MG CAPSULE PO SCH ×2 (09:16→20:00)
[2016-11-17] MEDS: LISINOPRIL 5 MG TABLET PO SCH (09:17)
[2016-11-17] MEDS: DULOXETINE 60 MG CAPSULE PO SCH (09:17)
[2016-11-17] MEDS: TOPIRAMATE 25 MG TABLET PO SCH (09:17)
[2016-11-17] MEDS: WARFARIN 4 MG TABLET PO SCH (12:32)
--- NOTE | 2016-11-17 17:26 | Neuropsych Progress Note ---
[facility] Subjective Date: 11/17/16 - Sujective/Severity of Illness Medications: Acetaminophen/Hydrocodone Bitart ([place] 5/325) 1 tab PO Q6H PRN PRN Reason: P Last Admin: 11/16/16 19:42 Dose: 1 tab Aspirin (Asa) 81 mg PO DAILY [facility] Last Admin: 11/17/16 09:16 Dose: 81 mg Atorvastatin Calcium (Lipitor) 10 mg PO 2100 [facility] Last Admin: 11/16/16 21:43 Dose: Not Given Diltiazem HCl (Cardizem Cd) 180 mg PO DAILY [facility] Last Admin: 11/17/16 09:16 Dose: 180 mg Dorzolamide/Timolol (Cosopt Ocumeter Plus) 1 drops RIGHT EYE BID [facility] Last Admin: 11/17/16 09:22 Dose: Not Given Duloxetine HCl (Cymbalta) 60 mg PO DAILY [facility] Last Admin: 11/17/16 09:17 Dose: 60 mg Gabapentin (Neurontin) 100 mg PO BID [facility] Last Admin: 11/17/16 09:16 Dose: 100 mg Haloperidol (Haldol) 0.5 mg PO Q6H PRN PRN Reason: Extreme agitation Haloperidol Decanoate (Haldol Liquid) 0.5 mg PO Q6H PRN PRN Reason: Agitation Haloperidol Lactate (Haldol) 0.5 mg IM Q6H PRN PRN Reason: Extreme agitation Last Admin: 11/16/16 15:48 Dose: 0.5 mg Hydroxyzine HCl (Atarax) 25 mg PO BID PRN PRN Reason: Anxiety Lisinopril (Prinivil) 5 mg PO DAILY [facility] Last Admin: 11/17/16 09:17 Dose: 5 mg Loperamide HCl (Imodium) 2 - 4 mg PO Q4H PRN PRN Reason: LOOSE STOOLS Last Admin: 11/12/16 21:29 Dose: 4 mg Lorazepam (Ativan) 0.5 mg PO Q6H PRN PRN Reason: Extreme agitation Last Admin: 11/14/16 19:47 Dose: 0.5 mg Lorazepam (Ativan Inj) 0.5 mg IM Q6H PRN PRN Reason: Extreme agitation Last Admin: 11/16/16 15:47 Dose: 0.5 mg Lorazepam (Ativan Intensol) 0.5 mg PO Q6H PRN PRN Reason: Agitation Metoprolol Succinate (Toprol Xl) 50 mg PO DAILY [facility] Last Admin: 11/17/16 09:17 Dose: 50 mg Mirtazapine (Remeron) 15 mg PO 2100 [facility] Last Admin: 11/16/16 21:44 Dose: Not Given Pantoprazole Sodium (Protonix) 20 mg PO 2100 [facility] Last Admin: 11/16/16 21:44 Dose: Not Given Phenytoin Sodium (Dilantin) 200 mg PO WB [facility] Last Admin: 11/17/16 09:16 Dose: 200 mg Phenytoin Sodium (Dilantin) 300 mg PO 2100 [facility] Last Admin: 11/16/16 21:43 Dose: Not Given Risperidone (Risperdal) 1 mg PO 2100 [facility] Last Admin: 11/16/16 21:44 Dose: Not Given Topiramate (Topamax) 25 mg PO DAILY [facility] Last Admin: 11/17/16 09:17 Dose: 25 mg Travoprost (Travatan Z) 1 drops EACH EYE HS [facility] Last Admin: 11/16/16 21:44 Dose: Not Given Warfarin Sodium (Coumadin Protocol) 0 MC NOTE [facility] Warfarin Sodium (Coumadin) 4 mg PO NOON [facility] Last Admin: 11/17/16 12:32 Dose: 4 mg Subjective: Pt seen and chart examined. Nursing reports pt had a better day today. Was apologetic to staff about her behavior yesterday. On face to face the pt states she is doing pretty well. Sleeping well and has a good appetite. Some depression but denies S/I. Tolerating meds Start Time: 17:00 Stop Time: 17:15 Mental Status Exam Vitals: Last Vital Signs Temp 97.7 F 11/17/16 16:00 Pulse 75 11/17/16 16:00 Resp 16 11/17/16 16:00 BP 113/54 11/17/16 16:00 Pulse Ox 100 11/17/16 16:00 Height: 1.57 m Weight: 32.885 kg - Mental Status Exam Muscle Strength/Tone: Weak Dressing: Casual Grooming: Good Attitude: Cooperative Motor Activity: Retardation Eye Contact: Poor Speech: Slowed Volume: Normal Rhythm: Appropriate Rhythm Orientation: Oriented to person, Oriented to place, Oriented to time Mood: Irritable, Other (frustrated) Rate of Thoughts: Appropriate Rate Thought Organization: [place] Associations: Illogical Abstract Reasoning: Poor abstract reasoning Thought Content: Normal Perception/Psychotic: Perception Normal Fund of Knowledge: Poor fund of knowledge Memory: Poor-immediate Suicidal Ideation: None Homicidal Ideation: None Insight: Poor Judgement: Poor Impulse Control: Poor - Laboratory Result Diagrams: 11/13/16 05:52 11/13/16 05:52 Laboratory Results - last 24 hr 11/17/16 06:34 INR 2.00 H Assessment and Plan (1) Major depressive disorder, recurrent, severe with psychotic features Current visit: Yes Status: Acute Hospital Course Summary Disclaimer: The visit summary below is not to be considered part of the above Progress Note. Hospital Course: 11/11/16 12:04 Increase Risperidone to 1mg PO q HS 11/11/16 14:40 Patient is doing well medically. Labs reviewed- pharmacy consulted to manage warfarin. Goal INR 2.0-3.0 given hx of Atrial Fib. (nursing notes state mechanical valve, but I cannot find that on hx or exam). Continue Gabapentin/Dilantin. Need to avoid quinolones if infection concerns given known sz hx. Avoid Tramadol. Continue supportive meds for CAD (? CHF hx- monitor fluid status). 11/12/16 12:00 Continue current meds. Just increased Risperidone yesterday. If insufficient, may be able to tolerate 0.5mg in AM as well. 11/13/16 20:00 Cont current medication. Family meeting tomorrow 11/14/16 at 1700 11/14/16 22:51 Increase Risperidone to 1mg BID 11/15/16 13:53 11/15 Overall doing well medically. Urinalysis was rechecked this morning and it was negative. Labs reviewed- pharmacy consulted to manage warfarin. Goal INR 2.0-3.0 given hx of Atrial Fib. INR today remains therapeutic at 2.0. This is managed by pharmacy Would recommend decreasing the amount of [place] if possible as this may contribute to her encephalopathy, mental status changes. May consider scheduled Tylenol if pain is an issue. Given patients history of seizures. Would recommend avoiding tramadol as this could lower the seizure threshold 11/15/16 22:25 Decrease dose of Risperidone to 1mg q Hs 11/16/16 19:18 Increase Remeron to 15mg at HS 11/17/16 17:25 Continue current care
[2016-11-17] MEDS: HYDROCODONE/APAP 5mg/325mg TABLET PO PRN (18:15)
[2016-11-17] MEDS: PANTOPRAZOLE 20 MG TABLET PO SCH (19:59)
[2016-11-17] MEDS: MIRTAZAPINE 15 MG TABLET PO SCH (19:59)
[2016-11-17] MEDS: RisperiDONE 1 MG TABLET PO SCH (20:00)
[2016-11-17] MEDS: ATORVASTATIN 10 MG TABLET PO SCH (20:00)
[2016-11-17] MEDS: TRAVOPROST 0.004% EYE DROPS 2.5ml EACH EYE SCH (23:42)
[2016-11-18] MEDS: PHENYTOIN 100 MG CAPSULE PO SCH ×3 (08:56→20:24)
[2016-11-18] MEDS: DULOXETINE 60 MG CAPSULE PO SCH (08:57)
[2016-11-18] MEDS: GABAPENTIN 100 MG CAPSULE PO SCH ×3 (08:58→20:25)
[2016-11-18] MEDS: LIDOCAINE 5% PATCH TOP SCH (08:58)
[2016-11-18] MEDS: LISINOPRIL 5 MG TABLET PO SCH (08:59)
[2016-11-18] MEDS: TOPIRAMATE 25 MG TABLET PO SCH (08:59)
[2016-11-18] MEDS: ASPIRIN 81 MG CHEWABLE TABLET PO SCH (09:00)
--- NOTE | 2016-11-18 11:30 | Neuropsych Progress Note ---
[facility] Subjective Date: 11/18/16 - Sujective/Severity of Illness Medications: Acetaminophen/Hydrocodone Bitart ([place] 5/325) 1 tab PO Q6H PRN PRN Reason: P Last Admin: 11/17/16 18:15 Dose: 1 tab Aspirin (Asa) 81 mg PO DAILY [facility] Last Admin: 11/18/16 09:00 Dose: 81 mg Atorvastatin Calcium (Lipitor) 10 mg PO 2100 [facility] Last Admin: 11/17/16 20:00 Dose: 10 mg Diltiazem HCl (Cardizem Cd) 180 mg PO DAILY [facility] Last Admin: 11/18/16 08:57 Dose: 180 mg Dorzolamide/Timolol (Cosopt Ocumeter Plus) 1 drops RIGHT EYE BID [facility] Last Admin: 11/18/16 08:57 Dose: 1 drops Duloxetine HCl (Cymbalta) 60 mg PO DAILY [facility] Last Admin: 11/18/16 08:57 Dose: 60 mg Gabapentin (Neurontin) 100 mg PO BID [facility] Last Admin: 11/18/16 08:58 Dose: 100 mg Haloperidol (Haldol) 0.5 mg PO Q6H PRN PRN Reason: Extreme agitation Haloperidol Decanoate (Haldol Liquid) 0.5 mg PO Q6H PRN PRN Reason: Agitation Haloperidol Lactate (Haldol) 0.5 mg IM Q6H PRN PRN Reason: Extreme agitation Last Admin: 11/16/16 15:48 Dose: 0.5 mg Hydroxyzine HCl (Atarax) 25 mg PO BID PRN PRN Reason: Anxiety Lidocaine (Lidoderm) 1 patch TOP DAILY [facility] Last Admin: 11/18/16 08:58 Dose: 1 patch Lidocaine HCl/Dextrose (Lidoderm Patch Removal) 1 removal TOP 2099 [facility] Lisinopril (Prinivil) 5 mg PO DAILY [facility] Last Admin: 11/18/16 08:59 Dose: 5 mg Loperamide HCl (Imodium) 2 - 4 mg PO Q4H PRN PRN Reason: LOOSE STOOLS Last Admin: 11/12/16 21:29 Dose: 4 mg Lorazepam (Ativan) 0.5 mg PO Q6H PRN PRN Reason: Extreme agitation Last Admin: 11/14/16 19:47 Dose: 0.5 mg Lorazepam (Ativan Inj) 0.5 mg IM Q6H PRN PRN Reason: Extreme agitation Last Admin: 11/16/16 15:47 Dose: 0.5 mg Lorazepam (Ativan Intensol) 0.5 mg PO Q6H PRN PRN Reason: Agitation Metoprolol Succinate (Toprol Xl) 50 mg PO DAILY [facility] Last Admin: 11/18/16 08:59 Dose: 50 mg Mirtazapine (Remeron) 15 mg PO 2100 [facility] Last Admin: 11/17/16 19:59 Dose: 15 mg Nystatin (Mycostatin) 1 applic TP QID PRN PRN Reason: See comments below Last Admin: 11/18/16 09:00 Dose: 1 applic Pantoprazole Sodium (Protonix) 20 mg PO 2100 [facility] Last Admin: 11/17/16 19:59 Dose: 20 mg Phenytoin Sodium (Dilantin) 200 mg PO WB [facility] Last Admin: 11/18/16 08:56 Dose: 200 mg Phenytoin Sodium (Dilantin) 300 mg PO 2100 [facility] Last Admin: 11/17/16 20:00 Dose: 300 mg Risperidone (Risperdal) 1 mg PO 2100 [facility] Last Admin: 11/17/16 20:00 Dose: 1 mg Topiramate (Topamax) 25 mg PO DAILY [facility] Last Admin: 11/18/16 08:59 Dose: 25 mg Travoprost (Travatan Z) 1 drops EACH EYE HS [facility] Last Admin: 11/17/16 23:42 Dose: Not Given Warfarin Sodium (Coumadin Protocol) 0 MC NOTE [facility] Warfarin Sodium (Coumadin) 4 mg PO NOON [facility] Last Admin: 11/17/16 12:32 Dose: 4 mg Subjective: Pt seen and chart examined. Nursing reports pt is doing well. Sleeping well and has a good appetite. No behaviors noted. On face to face the pt is pleasant. She reports her mood is stable. Denies any paranoia. Tolerating meds. Start Time: 11:00 Stop Time: 11:15 Mental Status Exam Vitals: Last Vital Signs Temp 97.8 F 11/18/16 09:40 Pulse 84 11/18/16 09:40 Resp 16 11/18/16 09:40 BP 122/57 11/18/16 09:40 Pulse Ox 98 11/18/16 09:40 Height: 1.57 m Weight: 32.885 kg - Mental Status Exam Muscle Strength/Tone: Weak Dressing: Casual Grooming: Good Attitude: Cooperative Motor Activity: Retardation Eye Contact: Poor Speech: Slowed Volume: Normal Rhythm: Appropriate Rhythm Orientation: Oriented to person, Oriented to place, Oriented to time Mood: Irritable, Other (frustrated) Rate of Thoughts: Appropriate Rate Thought Organization: [place] Associations: Illogical Abstract Reasoning: Poor abstract reasoning Thought Content: Normal Perception/Psychotic: Perception Normal Fund of Knowledge: Poor fund of knowledge Memory: Poor-immediate Suicidal Ideation: None Homicidal Ideation: None Insight: Poor Judgement: Poor Impulse Control: Poor - Laboratory Result Diagrams: 11/13/16 05:52 11/13/16 05:52 Assessment and Plan (1) Major depressive disorder, recurrent, severe with psychotic features Current visit: Yes Status: Acute Hospital Course Summary Disclaimer: The visit summary below is not to be considered part of the above Progress Note. Hospital Course: 11/11/16 12:04 Increase Risperidone to 1mg PO q HS 11/11/16 14:40 Patient is doing well medically. Labs reviewed- pharmacy consulted to manage warfarin. Goal INR 2.0-3.0 given hx of Atrial Fib. (nursing notes state mechanical valve, but I cannot find that on hx or exam). Continue Gabapentin/Dilantin. Need to avoid quinolones if infection concerns given known sz hx. Avoid Tramadol. Continue supportive meds for CAD (? CHF hx- monitor fluid status). 11/12/16 12:00 Continue current meds. Just increased Risperidone yesterday. If insufficient, may be able to tolerate 0.5mg in AM as well. 11/13/16 20:00 Cont current medication. Family meeting tomorrow 11/14/16 at 1700 11/14/16 22:51 Increase Risperidone to 1mg BID 11/15/16 13:53 11/15 Overall doing well medically. Urinalysis was rechecked this morning and it was negative. Labs reviewed- pharmacy consulted to manage warfarin. Goal INR 2.0-3.0 given hx of Atrial Fib. INR today remains therapeutic at 2.0. This is managed by pharmacy Would recommend decreasing the amount of [place] if possible as this may contribute to her encephalopathy, mental status changes. May consider scheduled Tylenol if pain is an issue. Given patients history of seizures. Would recommend avoiding tramadol as this could lower the seizure threshold 11/15/16 22:25 Decrease dose of Risperidone to 1mg q Hs 11/16/16 19:18 Increase Remeron to 15mg at HS 11/17/16 17:25 Continue current care 11/18/16 11:30 Continue current care
[2016-11-18] MEDS: WARFARIN 4 MG TABLET PO SCH ×2 (12:05→14:04)
--- NOTE | 2016-11-18 12:36 | Progress Note ---
Subjective: Cristine was seen urgently after I was alerted by [facility] staff for a fall. She dropped her fork during lunch and was bending over in her wheelchair to pick it up, but ended up toppling forward out of her chair. She struck her forehead on the lightly carpeted floor. A large frontal contusion/abrasion formed almost immediately. She began complaining of nausea shortly thereafter. She also started to cough. When I arrived she was sitting in her wheelchair in her room with a large central frontal contusion. She had left eye ptosis but staff wasn' t sure if that was present before. She was very drowsy. Typically she is alert and oriented to person, place, and date, but now she was only oriented to person. She stated that she was "in a home" but wasn't able to tell me any further details. When I asked her what day/month/year, she replied "I don't know ". She had difficulty following directions for neuro exam. She denied paresthesias or unilateral weakness. She complained of a terrible headache. Objective Vital signs: Temperature 97.8 F 11/18/16 09:40 Pulse Rate 84 11/18/16 09:40 Respiratory Rate 16 11/18/16 09:40 Blood Pressure 122/57 11/18/16 09:40 Pulse Oximetry 98 11/18/16 09:40 Oxygen Delivery Method Room Air Weight: 32.885 kg - Constitutional Present: moderate distress, well nourished, well developed - Routine HEENT Exam Head: Present: hematoma (forehead contusion/abrasion) Eye: Present: EOMI, PERRL, normal accommodation, conjunctivae pink. Absent: conjunctival icterus, scleral injection ENT: Present: mucous membranes moist Comments: left eye ptosis - Routine Respiratory Exam Present: CTA bilaterally - Routine Cardiovascular Exam Present: RRR, S1, S2, murmur (3/6 systolic) - Routine Abdominal Exam Present: soft, normoactive bowel sounds, non distended, non tender - Routine Extremities Exam Present: edema (BLE; both lower ext wrapped), pulses intact - Routine Back/Spine/Pelvis Exam Back/Spine: Absent: paraspinal tenderness, vertebral tenderness - Routine Musculoskeletal Exam Musculoskeletal: Absent: moving extremities well - Routine Skin Exam Present: warm - Routine Neurological Exam Present: motor deficit, altered mental status, nystagmus, facial asymmetry ( left ptosis). Absent: alert (drowsy), oriented X3 Patient is drowsy and had difficulty answering questions. She was alert and oriented to self only. She had left eye ptosis. She had difficulty tracking for extraocular movements. She had nystagmus with both right and left lateral movements. On strength, she was weaker on the right with a lathing supervisor strength of 3+ over 5 compared to left, which was 4 out of 5. She was unable to keep her arms elevated to test for pronator drift or to assess proximal upper extremity. Initially, she was unable to lift either leg, but with encouragement she was able to extend her right knee but not her left. Sensation was intact to light touch to all 4 extremities. Results - Labs CBC & Chem 7: 11/13/16 05:52 11/13/16 05:52 Assessment and Plan (1) Major depressive disorder, recurrent, severe with psychotic features Current visit: Yes Status: Acute (2) HTN (hypertension) Current visit: Yes Status: Chronic (3) Atrial fibrillation Current visit: Yes Status: Chronic (4) Chronic anticoagulation Current visit: Yes Status: Chronic (5) H/O: stroke Current visit: Yes Status: Chronic (6) History of seizures Current visit: Yes Status: Chronic (7) Fall from wheelchair Current visit: Yes Status: Acute DVT Prophylaxis: Coumadin Resuscitation Status: Full Code Assessment and Plan: Patient is having neurologic symptoms including left eye ptosis, altered mental status, drowsiness, nausea, nystagmus, following a fall from her wheelchair. She has a frontal contusion and superficial abrasion. She is on Coumadin for atrial fibrillation and her INR today is 2.0. She has not yet had her Coumadin today, and I have asked the nurses to hold it. We'll obtain a stat head CT, and also look at bone windows to evaluate for orbital floor fracture given her ptosis. I've asked nurses to monitor her closely and start neurochecks every couple hours. admission EKG reviewed - paced rhythm Head CT personally reviewed - NO acute bleeding. mild to moderate atrophy. Per radiology, no acute findings. Will need to monitor closely for SDH. Hold Coumadin for now. Sepsis Assessment - Evaluation Sepsis screening result: No Definite Risk Hospital Course Summary Disclaimer: The visit summary below is not to be considered part of the above Progress Note. Hospital Course: 11/11/16 12:04 Increase Risperidone to 1mg PO q HS 11/11/16 14:40 Patient is doing well medically. Labs reviewed- pharmacy consulted to manage warfarin. Goal INR 2.0-3.0 given hx of Atrial Fib. (nursing notes state mechanical valve, but I cannot find that on hx or exam). Continue Gabapentin/Dilantin. Need to avoid quinolones if infection concerns given known sz hx. Avoid Tramadol. Continue supportive meds for CAD (? CHF hx- monitor fluid status). 11/12/16 12:00 Continue current meds. Just increased Risperidone yesterday. If insufficient, may be able to tolerate 0.5mg in AM as well. 11/13/16 20:00 Cont current medication. Family meeting tomorrow 11/14/16 at 1700 11/14/16 22:51 Increase Risperidone to 1mg BID 11/15/16 13:53 11/15 Overall doing well medically. Urinalysis was rechecked this morning and it was negative. Labs reviewed- pharmacy consulted to manage warfarin. Goal INR 2.0-3.0 given hx of Atrial Fib. INR today remains therapeutic at 2.0. This is managed by pharmacy Would recommend decreasing the amount of [place] if possible as this may contribute to her encephalopathy, mental status changes. May consider scheduled Tylenol if pain is an issue. Given patients history of seizures. Would recommend avoiding tramadol as this could lower the seizure threshold 11/15/16 22:25 Decrease dose of Risperidone to 1mg q Hs 11/16/16 19:18 Increase Remeron to 15mg at HS 11/17/16 17:25 Continue current care 11/18/16 11:30 Continue current care 11/18/16 14:05 Patient is having neurologic symptoms including left eye ptosis, altered mental status, drowsiness, nausea, nystagmus, following a fall from her wheelchair. She has a frontal contusion and superficial abrasion. She is on Coumadin for atrial fibrillation and her INR today is 2.0. She has not yet had her Coumadin today, and I have asked the nurses to hold it. We'll obtain a stat head CT, and also look at bone windows to evaluate for orbital floor fracture given her ptosis. I've asked nurses to monitor her closely and start neurochecks every couple hours. admission EKG reviewed - paced rhythm Head CT personally reviewed - NO acute bleeding. mild to moderate atrophy. Per radiology, no acute findings. Will need to monitor closely for SDH. Hold Coumadin for now.
[2016-11-18] MEDS: ATORVASTATIN 10 MG TABLET PO SCH ×2 (19:35→20:25)
[2016-11-18] MEDS: MIRTAZAPINE 15 MG TABLET PO SCH ×2 (19:36→20:25)
[2016-11-18] MEDS: RisperiDONE 1 MG TABLET PO SCH ×2 (19:36→20:25)
[2016-11-18] MEDS: TRAVOPROST 0.004% EYE DROPS 2.5ml EACH EYE SCH (19:36)
[2016-11-18] MEDS: PANTOPRAZOLE 20 MG TABLET PO SCH ×2 (19:36→20:25)
[2016-11-18] MEDS: LIDOCAINE PATCH REMOVAL TOP SCH (20:24)
[2016-11-19] MEDS: ASPIRIN 81 MG CHEWABLE TABLET PO SCH (09:10)
[2016-11-19] MEDS: DULOXETINE 60 MG CAPSULE PO SCH (09:11)
[2016-11-19] MEDS: PHENYTOIN 100 MG CAPSULE PO SCH ×2 (09:11→19:56)
[2016-11-19] MEDS: TOPIRAMATE 25 MG TABLET PO SCH (09:12)
[2016-11-19] MEDS: LISINOPRIL 5 MG TABLET PO SCH (09:12)
[2016-11-19] MEDS: GABAPENTIN 100 MG CAPSULE PO SCH ×2 (09:12→19:56)
[2016-11-19] MEDS: LIDOCAINE 5% PATCH TOP SCH (09:12)
--- NOTE | 2016-11-19 10:26 | CT Scan Report ---
Indication: Fall PROCEDURE: CT head/brain wo con: Encounter: Initial Comparison: None Technique: Axial CT images through the head were performed without contrast. Iterative Reconstruction dose reducing technique was utilized. FINDINGS: Moderate atrophy. The ventricles are of normal size, shape, and configuration for the patient's age. There is no evidence of acute intracranial hemorrhage, midline displacement, or mass effect. There are scattered areas of low attenuation in the white matter which most likely represent changes of chronic microvascular ischemia. The CT attenuation of the brain parenchyma is otherwise normal within the cerebellum, brain stem, and cerebral hemispheres. The tympanic cavities and mastoid air cells are free of appreciable disease. There are no definite fractures of the skull base, calvarium, or visualized portion of the midface. IMPRESSION: No CT evidence of acute traumatic intracranial injury. There is a preliminary report by [facility]. .
--- NOTE | 2016-11-19 11:31 | Neuropsych Progress Note ---
[facility] Subjective Date: 11/19/16 - Sujective/Severity of Illness Medications: Acetaminophen/Hydrocodone Bitart ([place] 5/325) 1 tab PO Q6H PRN PRN Reason: P Last Admin: 11/17/16 18:15 Dose: 1 tab Aspirin (Asa) 81 mg PO DAILY [facility] Last Admin: 11/19/16 09:10 Dose: 81 mg Atorvastatin Calcium (Lipitor) 10 mg PO 2100 [facility] Last Admin: 11/18/16 20:25 Dose: Not Given Diltiazem HCl (Cardizem Cd) 180 mg PO DAILY [facility] Last Admin: 11/19/16 09:10 Dose: 180 mg Dorzolamide/Timolol (Cosopt [place] Plus) 1 drops RIGHT EYE BID [facility] Last Admin: 11/19/16 09:13 Dose: 1 drops Duloxetine HCl (Cymbalta) 60 mg PO DAILY [facility] Last Admin: 11/19/16 09:11 Dose: 60 mg Gabapentin (Neurontin) 100 mg PO BID [facility] Last Admin: 11/19/16 09:12 Dose: 100 mg Haloperidol (Haldol) 0.5 mg PO Q6H PRN PRN Reason: Extreme agitation Haloperidol Decanoate (Haldol Liquid) 0.5 mg PO Q6H PRN PRN Reason: Agitation Haloperidol Lactate (Haldol) 0.5 mg IM Q6H PRN PRN Reason: Extreme agitation Last Admin: 11/16/16 15:48 Dose: 0.5 mg Hydroxyzine HCl (Atarax) 25 mg PO BID PRN PRN Reason: Anxiety Lidocaine (Lidoderm) 1 patch TOP DAILY [facility] Last Admin: 11/19/16 09:12 Dose: 1 patch Lidocaine HCl/Dextrose (Lidoderm Patch Removal) 1 removal TOP 2099 [facility] Last Admin: 11/18/16 20:24 Dose: 1 removal Lisinopril (Prinivil) 5 mg PO DAILY [facility] Last Admin: 11/19/16 09:12 Dose: 5 mg Loperamide HCl (Imodium) 2 - 4 mg PO Q4H PRN PRN Reason: LOOSE STOOLS Last Admin: 11/12/16 21:29 Dose: 4 mg Lorazepam (Ativan) 0.5 mg PO Q6H PRN PRN Reason: Extreme agitation Last Admin: 11/14/16 19:47 Dose: 0.5 mg Lorazepam (Ativan Inj) 0.5 mg IM Q6H PRN PRN Reason: Extreme agitation Last Admin: 11/16/16 15:47 Dose: 0.5 mg Lorazepam (Ativan Intensol) 0.5 mg PO Q6H PRN PRN Reason: Agitation Metoprolol Succinate (Toprol Xl) 50 mg PO DAILY [facility] Last Admin: 11/19/16 09:12 Dose: 50 mg Mirtazapine (Remeron) 15 mg PO 2100 [facility] Last Admin: 11/18/16 20:25 Dose: Not Given Nystatin (Mycostatin) 1 applic TP QID PRN PRN Reason: See comments below Last Admin: 11/18/16 19:38 Dose: 1 applic Pantoprazole Sodium (Protonix) 20 mg PO 2100 [facility] Last Admin: 11/18/16 20:25 Dose: Not Given Phenytoin Sodium (Dilantin) 200 mg PO WB [facility] Last Admin: 11/19/16 09:11 Dose: 200 mg Phenytoin Sodium (Dilantin) 300 mg PO 2100 [facility] Last Admin: 11/18/16 20:24 Dose: Not Given Risperidone (Risperdal) 1 mg PO 2100 [facility] Last Admin: 11/18/16 20:25 Dose: Not Given Topiramate (Topamax) 25 mg PO DAILY [facility] Last Admin: 11/19/16 09:12 Dose: 25 mg Travoprost (Travatan Z) 1 drops EACH EYE HS [facility] Last Admin: 11/18/16 19:36 Dose: 1 drops Warfarin Sodium (Coumadin Protocol) 0 MC NOTE [facility] Subjective: Pt seen and chart examined. Nursing reports pt had a fall yesterday where she fell bending over to leaf size picker a dropped med and hit her head. CT was negative and neuro checks have been normal. On face to face the pt states she is doing well. She is a little sore. She reports her mood is stable. She voices no other concerns. Start Time: 10:45 Stop Time: 11:00 Mental Status Exam Vitals: Last Vital Signs Temp 97.3 F 11/19/16 09:00 Pulse 77 11/19/16 09:00 Resp 16 11/19/16 09:00 BP 129/57 11/19/16 09:00 Pulse Ox 98 11/19/16 09:00 Height: 1.57 m Weight: 32.885 kg - Mental Status Exam Muscle Strength/Tone: Weak Dressing: Casual Grooming: Good Attitude: Cooperative Motor Activity: Retardation Eye Contact: Poor Speech: Slowed Volume: Normal Rhythm: Appropriate Rhythm Orientation: Oriented to person, Oriented to place, Oriented to time Mood: Irritable, Other (frustrated) Rate of Thoughts: Appropriate Rate Thought Organization: [place] Associations: Illogical Abstract Reasoning: Poor abstract reasoning Thought Content: Normal Perception/Psychotic: Perception Normal Fund of Knowledge: Poor fund of knowledge Memory: Poor-immediate Suicidal Ideation: None Homicidal Ideation: None Insight: Poor Judgement: Poor Impulse Control: Poor - Laboratory Result Diagrams: 11/19/16 04:54 11/19/16 04:54 Laboratory Results - last 24 hr 11/19/16 11/19/16 04:54 04:54 WBC 7.5 RBC 3.05 L Hgb 9.7 L Hct 30.4 L MCV 99.7 MCH 31.8 MCHC 31.9 RDW Std Deviation 45.9 Plt Count 206 MPV 10.4 Immature Gran % (Auto) 0.3 Neut % (Auto) 58.2 Lymph % (Auto) 26.6 Leon % (Auto) 10.0 H Eos % (Auto) 4.4 H Baso % (Auto) 0.5 Neut # 4.4 Lymph # 2.0 Leon # 0.8 Eos # 0.3 Baso # 0.0 Abs Immat Gran (auto) 0.02 Turbidity < 20 Sodium 142 Potassium 4.8 Chloride 108 H Carbon Dioxide 27 Anion Gap 7 BUN 35.0 H Creatinine 0.9 GFR Calculation 59 BUN/Creatinine Ratio 39 H Glucose 111 H Calculated Osmolality 282 H Calcium 9.3 Icterus Index < 2 Specimen Hemolysis < 15 Assessment and Plan (1) Major depressive disorder, recurrent, severe with psychotic features Current visit: Yes Status: Acute Hospital Course Summary Disclaimer: The visit summary below is not to be considered part of the above Progress Note. Hospital Course: 11/11/16 12:04 Increase Risperidone to 1mg PO q HS 11/11/16 14:40 Patient is doing well medically. Labs reviewed- pharmacy consulted to manage warfarin. Goal INR 2.0-3.0 given hx of Atrial Fib. (nursing notes state mechanical valve, but I cannot find that on hx or exam). Continue Gabapentin/Dilantin. Need to avoid quinolones if infection concerns given known sz hx. Avoid Tramadol. Continue supportive meds for CAD (? CHF hx- monitor fluid status). 11/12/16 12:00 Continue current meds. Just increased Risperidone yesterday. If insufficient, may be able to tolerate 0.5mg in AM as well. 11/13/16 20:00 Cont current medication. Family meeting tomorrow 11/14/16 at 1700 11/14/16 22:51 Increase Risperidone to 1mg BID 11/15/16 13:53 11/15 Overall doing well medically. Urinalysis was rechecked this morning and it was negative. Labs reviewed- pharmacy consulted to manage warfarin. Goal INR 2.0-3.0 given hx of Atrial Fib. INR today remains therapeutic at 2.0. This is managed by pharmacy Would recommend decreasing the amount of [place] if possible as this may contribute to her encephalopathy, mental status changes. May consider scheduled Tylenol if pain is an issue. Given patients history of seizures. Would recommend avoiding tramadol as this could lower the seizure threshold 11/15/16 22:25 Decrease dose of Risperidone to 1mg q Hs 11/16/16 19:18 Increase Remeron to 15mg at HS 11/17/16 17:25 Continue current care 11/18/16 11:30 Continue current care 11/18/16 14:05 Patient is having neurologic symptoms including left eye ptosis, altered mental status, drowsiness, nausea, nystagmus, following a fall from her wheelchair. She has a frontal contusion and superficial abrasion. She is on Coumadin for atrial fibrillation and her INR today is 2.0. She has not yet had her Coumadin today, and I have asked the nurses to hold it. We'll obtain a stat head CT, and also look at bone windows to evaluate for orbital floor fracture given her ptosis. I've asked nurses to monitor her closely and start neurochecks every couple hours. admission EKG reviewed - paced rhythm Head CT personally reviewed - NO acute bleeding. mild to moderate atrophy. Per radiology, no acute findings. Will need to monitor closely for SDH. Hold Coumadin for now. 11/19/16 11:31 Continue current care
--- NOTE | 2016-11-19 11:42 | Progress Note ---
Subjective: Cristine was seen before breakfast this morning. She was in good spirits, alert and oriented 3. She communicated well. Her thought process and speech were fluent. She denied a headache, nausea, dizziness, paresthesias, or unilateral weakness. She vaguely remembers falling and hitting her head yesterday. She showed me her black eye and slightly swollen nasal bridge, which made it a little bit painful to rest her glasses on. She denies any difficulty breathing or chest pain. Objective Vital signs: Temperature 97.3 F 11/19/16 09:00 Pulse Rate 77 11/19/16 09:00 Respiratory Rate 16 11/19/16 09:00 Blood Pressure 129/57 11/19/16 09:00 Pulse Oximetry 98 11/19/16 09:00 Oxygen Delivery Method Room Air Weight: 32.885 kg - Constitutional Present: no acute distress, well nourished, well developed - Routine HEENT Exam Head: Present: facial swelling (contusion to forehead with bilateral periorbital ecchymosis, right greater than left. Mild nasal bridge swelling and ecchymosis.) Eye: Present: EOMI, PERRL. Absent: conjunctival icterus, scleral injection ENT: Present: mucous membranes moist - Routine Respiratory Exam Present: CTA bilaterally - Routine Cardiovascular Exam Present: S1, S2, murmur - Routine Abdominal Exam Present: soft, normoactive bowel sounds, non distended, non tender - Routine Extremities Exam Present: no edema, normal capillary refill - Routine Back/Spine/Pelvis Exam Back/Spine: Absent: paraspinal tenderness, vertebral tenderness - Routine Musculoskeletal Exam Musculoskeletal: Present: no clubbing or cyanosis, no erythema - Routine Skin Exam Present: intact, dry, warm, ecchymosis (as previously noted) - Routine Neurological Exam Present: alert, oriented X3, CN II-XII intact, moving all extremities, nystagmus (fatigable lateral nystagmus), facial asymmetry (left ptosis is not as pronounced as yesterday). Absent: sensory deficit, motor deficit [place] strength, deltoids, hip flexion, knee extension, ankle dorsi and plantar flexion: equal bilaterally, - Routine Psychiatric Exam Present: normal affect, normal thought process Results - Labs CBC & Chem 7: 11/19/16 04:54 11/19/16 04:54 Assessment and Plan (1) Major depressive disorder, recurrent, severe with psychotic features Current visit: Yes Status: Acute (2) HTN (hypertension) Current visit: Yes Status: Chronic (3) Atrial fibrillation Current visit: Yes Status: Chronic (4) Chronic anticoagulation Current visit: Yes Status: Chronic (5) H/O: stroke Current visit: Yes Status: Chronic (6) History of seizures Current visit: Yes Status: Chronic (7) Fall from wheelchair Current visit: Yes Status: Acute Assessment and Plan: Fall, forehead contusion, suspect concussion. -Neurologic symptoms have resolved and patient is at her baseline mental status. -Continue with neurologic checks, but change frequency to every 4 hours while awake. -Hold Coumadin today, but if she remains stable tomorrow, will likely resume soon. Normocytic anemia. -Mild drop in hemoglobin to 9.7. Vital signs are stable. Sepsis Assessment - Evaluation Sepsis screening result: No Definite Risk Hospital Course Summary Disclaimer: The visit summary below is not to be considered part of the above Progress Note. Hospital Course: 11/11/16 12:04 Increase Risperidone to 1mg PO q HS 11/11/16 14:40 Patient is doing well medically. Labs reviewed- pharmacy consulted to manage warfarin. Goal INR 2.0-3.0 given hx of Atrial Fib. (nursing notes state mechanical valve, but I cannot find that on hx or exam). Continue Gabapentin/Dilantin. Need to avoid quinolones if infection concerns given known sz hx. Avoid Tramadol. Continue supportive meds for CAD (? CHF hx- monitor fluid status). 11/12/16 12:00 Continue current meds. Just increased Risperidone yesterday. If insufficient, may be able to tolerate 0.5mg in AM as well. 11/13/16 20:00 Cont current medication. Family meeting tomorrow 11/14/16 at 1700 11/14/16 22:51 Increase Risperidone to 1mg BID 11/15/16 13:53 11/15 Overall doing well medically. Urinalysis was rechecked this morning and it was negative. Labs reviewed- pharmacy consulted to manage warfarin. Goal INR 2.0-3.0 given hx of Atrial Fib. INR today remains therapeutic at 2.0. This is managed by pharmacy Would recommend decreasing the amount of [place] if possible as this may contribute to her encephalopathy, mental status changes. May consider scheduled Tylenol if pain is an issue. Given patients history of seizures. Would recommend avoiding tramadol as this could lower the seizure threshold 11/15/16 22:25 Decrease dose of Risperidone to 1mg q Hs 11/16/16 19:18 Increase Remeron to 15mg at HS 11/17/16 17:25 Continue current care 11/18/16 11:30 Continue current care 11/18/16 14:05 Patient is having neurologic symptoms including left eye ptosis, altered mental status, drowsiness, nausea, nystagmus, following a fall from her wheelchair. She has a frontal contusion and superficial abrasion. She is on Coumadin for atrial fibrillation and her INR today is 2.0. She has not yet had her Coumadin today, and I have asked the nurses to hold it. We'll obtain a stat head CT, and also look at bone windows to evaluate for orbital floor fracture given her ptosis. I've asked nurses to monitor her closely and start neurochecks every couple hours. admission EKG reviewed - paced rhythm Head CT personally reviewed - NO acute bleeding. mild to moderate atrophy. Per radiology, no acute findings. Will need to monitor closely for SDH. Hold Coumadin for now. 11/19/16 11:31 Continue current care 11/19/16 11:46 Fall, forehead contusion, suspect concussion. -Neurologic symptoms have resolved and patient is at her baseline mental status. -Continue with neurologic checks, but change frequency to every 4 hours while awake. -Hold Coumadin today, but if she remains stable tomorrow, will likely resume soon. Normocytic anemia. -Mild drop in hemoglobin to 9.7. Vital signs are stable.
[2016-11-19] MEDS: PANTOPRAZOLE 20 MG TABLET PO SCH (19:56)
[2016-11-19] MEDS: MIRTAZAPINE 15 MG TABLET PO SCH (19:56)
[2016-11-19] MEDS: RisperiDONE 1 MG TABLET PO SCH (19:56)
[2016-11-19] MEDS: ATORVASTATIN 10 MG TABLET PO SCH (19:56)
[2016-11-19] MEDS: TRAVOPROST 0.004% EYE DROPS 2.5ml EACH EYE SCH (19:57)
[2016-11-19] MEDS: HYDROCODONE/APAP 5mg/325mg TABLET PO PRN (20:13)
[2016-11-20] MEDS: LIDOCAINE PATCH REMOVAL TOP SCH ×2 (05:51→19:40)
[2016-11-20] MEDS: PHENYTOIN 100 MG CAPSULE PO SCH ×3 (05:51→19:39)
[2016-11-20] MEDS: PANTOPRAZOLE 20 MG TABLET PO SCH ×2 (05:52→19:39)
[2016-11-20] MEDS: MIRTAZAPINE 15 MG TABLET PO SCH ×2 (05:52→19:38)
[2016-11-20] MEDS: GABAPENTIN 100 MG CAPSULE PO SCH ×3 (05:52→19:38)
[2016-11-20] MEDS: ATORVASTATIN 10 MG TABLET PO SCH ×2 (05:52→19:39)
[2016-11-20] MEDS: RisperiDONE 1 MG TABLET PO SCH ×2 (05:52→19:39)
[2016-11-20] MEDS: TRAVOPROST 0.004% EYE DROPS 2.5ml EACH EYE SCH ×2 (05:53→19:50)
[2016-11-20] MEDS: TOPIRAMATE 25 MG TABLET PO SCH (08:38)
[2016-11-20] MEDS: LIDOCAINE 5% PATCH TOP SCH (08:38)
[2016-11-20] MEDS: DULOXETINE 60 MG CAPSULE PO SCH (08:38)
[2016-11-20] MEDS: LISINOPRIL 5 MG TABLET PO SCH (08:38)
[2016-11-20] MEDS: ASPIRIN 81 MG CHEWABLE TABLET PO SCH (08:56)
--- NOTE | 2016-11-20 10:41 | Progress Note ---
Subjective: Cristine is seen today in follow up. She is sitting in the day room, talking with other patients. She does continue to have some ecchymosis to her forehead as well as under bilateral eyes from her fall. Neuro checks remain normal. Appetite is good and bowels are moving regularly. Objective Vital signs: Temperature 98.7 F 11/20/16 08:00 Pulse Rate 71 11/20/16 08:00 Respiratory Rate 18 11/20/16 08:00 Blood Pressure 128/51 11/20/16 08:00 Pulse Oximetry 97 11/20/16 08:00 Oxygen Delivery Method Room Air Weight: 32.885 kg - Constitutional Present: well nourished, well developed - Routine HEENT Exam Head: Present: normocephalic Eye: Present: EOMI, PERRL ENT: Present: mucous membranes moist, dentition normal Comments: Ecchymosis to her forehead, under eyes - Routine Respiratory Exam Present: CTA bilaterally. Absent: wheezes - Routine Cardiovascular Exam Present: RRR, S1, S2. Absent: murmur - Routine Abdominal Exam Present: soft, normoactive bowel sounds, non distended. Absent: tenderness - Routine Extremities Exam Present: normal capillary refill - Routine Back/Spine/Pelvis Exam Back/Spine: Present: full ROM - Routine Skin Exam Present: intact, dry, warm - Routine Neurological Exam Present: alert, CN II-XII intact - Routine Lymphatic Exam Lymphatic: Absent: adenopathy - Routine Psychiatric Exam Present: cooperative Results - Labs CBC & Chem 7: 11/19/16 04:54 11/19/16 04:54 Assessment and Plan (1) Major depressive disorder, recurrent, severe with psychotic features Current visit: Yes Status: Acute (2) HTN (hypertension) Current visit: Yes Status: Chronic (3) Atrial fibrillation Current visit: Yes Status: Chronic (4) Chronic anticoagulation Current visit: Yes Status: Chronic (5) H/O: stroke Current visit: Yes Status: Chronic (6) History of seizures Current visit: Yes Status: Chronic (7) Fall from wheelchair Current visit: Yes Status: Acute Assessment and Plan: 11/20/16 Fall, forehead contusion- Neurologically patient has been stable. Will discontinue neuro checks. Will resume Coumadin today. HTN- well controlled on current regimen Normocytic anemia- stable Sepsis Assessment - Evaluation Sepsis screening result: No Definite Risk Hospital Course Summary Disclaimer: The visit summary below is not to be considered part of the above Progress Note. Hospital Course: 11/11/16 12:04 Increase Risperidone to 1mg PO q HS 11/11/16 14:40 Patient is doing well medically. Labs reviewed- pharmacy consulted to manage warfarin. Goal INR 2.0-3.0 given hx of Atrial Fib. (nursing notes state mechanical valve, but I cannot find that on hx or exam). Continue Gabapentin/Dilantin. Need to avoid quinolones if infection concerns given known sz hx. Avoid Tramadol. Continue supportive meds for CAD (? CHF hx- monitor fluid status). 11/12/16 12:00 Continue current meds. Just increased Risperidone yesterday. If insufficient, may be able to tolerate 0.5mg in AM as well. 11/13/16 20:00 Cont current medication. Family meeting tomorrow 11/14/16 at 1700 11/14/16 22:51 Increase Risperidone to 1mg BID 11/15/16 13:53 11/15 Overall doing well medically. Urinalysis was rechecked this morning and it was negative. Labs reviewed- pharmacy consulted to manage warfarin. Goal INR 2.0-3.0 given hx of Atrial Fib. INR today remains therapeutic at 2.0. This is managed by pharmacy Would recommend decreasing the amount of [place] if possible as this may contribute to her encephalopathy, mental status changes. May consider scheduled Tylenol if pain is an issue. Given patients history of seizures. Would recommend avoiding tramadol as this could lower the seizure threshold 11/15/16 22:25 Decrease dose of Risperidone to 1mg q Hs 11/16/16 19:18 Increase Remeron to 15mg at HS 11/17/16 17:25 Continue current care 11/18/16 11:30 Continue current care 11/18/16 14:05 Patient is having neurologic symptoms including left eye ptosis, altered mental status, drowsiness, nausea, nystagmus, following a fall from her wheelchair. She has a frontal contusion and superficial abrasion. She is on Coumadin for atrial fibrillation and her INR today is 2.0. She has not yet had her Coumadin today, and I have asked the nurses to hold it. We'll obtain a stat head CT, and also look at bone windows to evaluate for orbital floor fracture given her ptosis. I've asked nurses to monitor her closely and start neurochecks every couple hours. admission EKG reviewed - paced rhythm Head CT personally reviewed - NO acute bleeding. mild to moderate atrophy. Per radiology, no acute findings. Will need to monitor closely for SDH. Hold Coumadin for now. 11/19/16 11:31 Continue current care 11/19/16 11:46 Fall, forehead contusion, suspect concussion. -Neurologic symptoms have resolved and patient is at her baseline mental status. -Continue with neurologic checks, but change frequency to every 4 hours while awake. -Hold Coumadin today, but if she remains stable tomorrow, will likely resume soon. Normocytic anemia. -Mild drop in hemoglobin to 9.7. Vital signs are stable.
--- NOTE | 2016-11-20 19:02 | Neuropsych Progress Note ---
[facility] Subjective Date: 11/20/16 - Sujective/Severity of Illness Medications: Acetaminophen/Hydrocodone Bitart ([place] 5/325) 1 tab PO Q6H PRN PRN Reason: P Last Admin: 11/19/16 20:13 Dose: 1 tab Aspirin (Asa) 81 mg PO DAILY [facility] Last Admin: 11/20/16 08:56 Dose: 81 mg Atorvastatin Calcium (Lipitor) 10 mg PO 2100 [facility] Last Admin: 11/20/16 05:52 Dose: Not Given Diltiazem HCl (Cardizem Cd) 180 mg PO DAILY [facility] Last Admin: 11/20/16 08:37 Dose: 180 mg Dorzolamide/Timolol (Cosopt Ocumeter Plus) 1 drops RIGHT EYE BID [facility] Last Admin: 11/20/16 08:38 Dose: 1 drops Duloxetine HCl (Cymbalta) 60 mg PO DAILY [facility] Last Admin: 11/20/16 08:38 Dose: 60 mg Gabapentin (Neurontin) 100 mg PO BID [facility] Last Admin: 11/20/16 08:38 Dose: 100 mg Haloperidol (Haldol) 0.5 mg PO Q6H PRN PRN Reason: Extreme agitation Haloperidol Decanoate (Haldol Liquid) 0.5 mg PO Q6H PRN PRN Reason: Agitation Haloperidol Lactate (Haldol) 0.5 mg IM Q6H PRN PRN Reason: Extreme agitation Last Admin: 11/16/16 15:48 Dose: 0.5 mg Hydroxyzine HCl (Atarax) 25 mg PO BID PRN PRN Reason: Anxiety Lidocaine (Lidoderm) 1 patch TOP DAILY [facility] Last Admin: 11/20/16 08:38 Dose: 1 patch Lidocaine HCl/Dextrose (Lidoderm Patch Removal) 1 removal TOP 2099 [facility] Last Admin: 11/20/16 05:51 Dose: 1 removal Lisinopril (Prinivil) 5 mg PO DAILY [facility] Last Admin: 11/20/16 08:38 Dose: 5 mg Loperamide HCl (Imodium) 2 - 4 mg PO Q4H PRN PRN Reason: LOOSE STOOLS Last Admin: 11/12/16 21:29 Dose: 4 mg Lorazepam (Ativan) 0.5 mg PO Q6H PRN PRN Reason: Extreme agitation Last Admin: 11/14/16 19:47 Dose: 0.5 mg Lorazepam (Ativan Inj) 0.5 mg IM Q6H PRN PRN Reason: Extreme agitation Last Admin: 11/16/16 15:47 Dose: 0.5 mg Lorazepam (Ativan Intensol) 0.5 mg PO Q6H PRN PRN Reason: Agitation Metoprolol Succinate (Toprol Xl) 50 mg PO DAILY [facility] Last Admin: 11/20/16 08:39 Dose: 50 mg Mirtazapine (Remeron) 15 mg PO 2100 [facility] Last Admin: 11/20/16 05:52 Dose: Not Given Nystatin (Mycostatin) 1 applic TP QID PRN PRN Reason: See comments below Last Admin: 11/18/16 19:38 Dose: 1 applic Pantoprazole Sodium (Protonix) 20 mg PO 2100 [facility] Last Admin: 11/20/16 05:52 Dose: Not Given Phenytoin Sodium (Dilantin) 200 mg PO WB [facility] Last Admin: 11/20/16 08:36 Dose: 200 mg Phenytoin Sodium (Dilantin) 300 mg PO 2100 [facility] Last Admin: 11/20/16 05:51 Dose: Not Given Risperidone (Risperdal) 1 mg PO 2100 [facility] Last Admin: 11/20/16 05:52 Dose: Not Given Topiramate (Topamax) 25 mg PO DAILY [facility] Last Admin: 11/20/16 08:38 Dose: 25 mg Travoprost (Travatan Z) 1 drops EACH EYE 2100 [facility] Warfarin Sodium (Coumadin Protocol) 0 [facility] NOTE [facility] Subjective: Pt seen and chart examined. Nursing reports pt has been irritable and slightly impulsive today. On face to face the pt states she is doing well. Slightly depressed but feels for the most part her mood is stable. She denies any S/I. She is oriented x 2. Not sure of the location. Tolerating meds Start Time: 19:00 Stop Time: 19:15 Mental Status Exam Vitals: Last Vital Signs Temp 97.8 F 11/20/16 16:00 Pulse 63 11/20/16 16:00 Resp 16 11/20/16 16:00 BP 89/59 11/20/16 16:00 Pulse Ox 99 11/20/16 16:00 Height: 1.57 m Weight: 75.1 kg - Mental Status Exam Muscle Strength/Tone: Weak Dressing: Casual Grooming: Good Attitude: Cooperative Motor Activity: Retardation Eye Contact: Poor Speech: Slowed Volume: Normal Rhythm: Appropriate Rhythm Orientation: Oriented to person, Oriented to place, Oriented to time Mood: Irritable, Other (frustrated) Rate of Thoughts: Appropriate Rate Thought Organization: [place] Associations: Illogical Abstract Reasoning: Poor abstract reasoning Thought Content: Normal Perception/Psychotic: Perception Normal Fund of Knowledge: Poor fund of knowledge Memory: Poor-immediate Suicidal Ideation: None Homicidal Ideation: None Insight: Poor Judgement: Poor Impulse Control: Poor - Laboratory Result Diagrams: 11/19/16 04:54 11/19/16 04:54 Laboratory Results - last 24 hr 11/20/16 07:12 INR 2.00 H Assessment and Plan (1) Major depressive disorder, recurrent, severe with psychotic features Current visit: Yes Status: Acute Hospital Course Summary Disclaimer: The visit summary below is not to be considered part of the above Progress Note. Hospital Course: 11/11/16 12:04 Increase Risperidone to 1mg PO q HS 11/11/16 14:40 Patient is doing well medically. Labs reviewed- pharmacy consulted to manage warfarin. Goal INR 2.0-3.0 given hx of Atrial Fib. (nursing notes state mechanical valve, but I cannot find that on hx or exam). Continue Gabapentin/Dilantin. Need to avoid quinolones if infection concerns given known sz hx. Avoid Tramadol. Continue supportive meds for CAD (? CHF hx- monitor fluid status). 11/12/16 12:00 Continue current meds. Just increased Risperidone yesterday. If insufficient, may be able to tolerate 0.5mg in AM as well. 11/13/16 20:00 Cont current medication. Family meeting tomorrow 11/14/16 at 1700 11/14/16 22:51 Increase Risperidone to 1mg BID 11/15/16 13:53 11/15 Overall doing well medically. Urinalysis was rechecked this morning and it was negative. Labs reviewed- pharmacy consulted to manage warfarin. Goal INR 2.0-3.0 given hx of Atrial Fib. INR today remains therapeutic at 2.0. This is managed by pharmacy Would recommend decreasing the amount of [place] if possible as this may contribute to her encephalopathy, mental status changes. May consider scheduled Tylenol if pain is an issue. Given patients history of seizures. Would recommend avoiding tramadol as this could lower the seizure threshold 11/15/16 22:25 Decrease dose of Risperidone to 1mg q Hs 11/16/16 19:18 Increase Remeron to 15mg at HS 11/17/16 17:25 Continue current care 11/18/16 11:30 Continue current care 11/18/16 14:05 Patient is having neurologic symptoms including left eye ptosis, altered mental status, drowsiness, nausea, nystagmus, following a fall from her wheelchair. She has a frontal contusion and superficial abrasion. She is on Coumadin for atrial fibrillation and her INR today is 2.0. She has not yet had her Coumadin today, and I have asked the nurses to hold it. We'll obtain a stat head CT, and also look at bone windows to evaluate for orbital floor fracture given her ptosis. I've asked nurses to monitor her closely and start neurochecks every couple hours. admission EKG reviewed - paced rhythm Head CT personally reviewed - NO acute bleeding. mild to moderate atrophy. Per radiology, no acute findings. Will need to monitor closely for SDH. Hold Coumadin for now. 11/19/16 11:31 Continue current care 11/19/16 11:46 Fall, forehead contusion, suspect concussion. -Neurologic symptoms have resolved and patient is at her baseline mental status. -Continue with neurologic checks, but change frequency to every 4 hours while awake. -Hold Coumadin today, but if she remains stable tomorrow, will likely resume soon. Normocytic anemia. -Mild drop in hemoglobin to 9.7. Vital signs are stable. 11/20/16 19:02 Add Risperdal 0.5mg in AM
[2016-11-21] MEDS: GABAPENTIN 100 MG CAPSULE PO SCH ×3 (00:37→19:57)
[2016-11-21] MEDS: ATORVASTATIN 10 MG TABLET PO SCH ×2 (00:37→19:57)
[2016-11-21] MEDS: PHENYTOIN 100 MG CAPSULE PO SCH ×3 (00:37→19:56)
[2016-11-21] MEDS: LIDOCAINE PATCH REMOVAL TOP SCH ×2 (00:37→20:30)
[2016-11-21] MEDS: MIRTAZAPINE 15 MG TABLET PO SCH ×2 (00:38→19:57)
[2016-11-21] MEDS: RisperiDONE 1 MG TABLET PO SCH ×2 (00:38→19:57)
[2016-11-21] MEDS: TRAVOPROST 0.004% EYE DROPS 2.5ml EACH EYE SCH ×2 (00:38→19:59)
[2016-11-21] MEDS: PANTOPRAZOLE 20 MG TABLET PO SCH ×2 (00:38→19:57)
[2016-11-21] MEDS: TOPIRAMATE 25 MG TABLET PO SCH (10:47)
[2016-11-21] MEDS: LISINOPRIL 5 MG TABLET PO SCH (10:47)
[2016-11-21] MEDS: ASPIRIN 81 MG CHEWABLE TABLET PO SCH (10:48)
[2016-11-21] MEDS: DULOXETINE 60 MG CAPSULE PO SCH (10:48)
[2016-11-21] MEDS: RisperiDONE 0.5 MG TABLET PO SCH (10:49)
[2016-11-21] MEDS: LIDOCAINE 5% PATCH TOP SCH (10:49)
--- NOTE | 2016-11-21 11:00 | Pharmacy Consult ---
Pharmacy Consult-Warfarin - Laboratory Information 11/09/16 11/11/16 11/13/16 17:59 05:11 05:52 INR 2.37 H 2.84 H 4.24 H 11/14/16 11/15/16 11/16/16 08:16 09:14 06:58 INR 3.70 H 2.00 H 1.90 H 11/17/16 11/20/16 06:34 07:12 INR 2.00 H 2.00 H - Consult Information COUMADIN CONSULT (Recurring): Today's INR = Not ordered for today.. Will give Warfarin 5mg today. (restarting protocol today) Will begin daily INR on 11/22/2016. Will continue to monitor & make adjustments accordingly. Thank you.
[2016-11-21] MEDS ORDERED: WARFARIN 5 MG TABLET PO ONE (12:00)
--- NOTE | 2016-11-21 14:14 | Progress Note ---
Subjective: Cristine was seen after breakfast. She was sitting at the dining room table in no acute distress. She was talkative and playful; definitely in good spirits. Nursing staff deny any concerns. Cristine denies headache, nausea, paresthesias, weakness, dizziness. The bruising/swelling to her forehead is subsiding. Objective Vital signs: Temperature 97.7 F 11/21/16 08:00 Pulse Rate 84 11/21/16 08:00 Respiratory Rate 16 11/21/16 08:00 Blood Pressure 141/64 H 11/21/16 08:00 Pulse Oximetry 96 11/21/16 08:00 Oxygen Delivery Method Room Air Weight: 75.1 kg - Constitutional Present: no acute distress, well nourished, well developed - Routine HEENT Exam Head: Present: hematoma (decreasing in size) Eye: Present: periorbital ecchymosis (R>L) ENT: Present: mucous membranes moist, oropharynx clear - Routine Respiratory Exam Present: CTA bilaterally - Routine Cardiovascular Exam Present: S1, S2, murmur - Routine Abdominal Exam Present: soft, normoactive bowel sounds, non distended, non tender - Routine Extremities Exam Present: edema (B/L 1+; ROSIBEL hose on.) - Routine Musculoskeletal Exam Musculoskeletal: Present: no clubbing or cyanosis - Routine Skin Exam Present: intact, dry, warm - Routine Neurological Exam Present: alert, CN II-XII intact, normal speech. Absent: sensory deficit, motor deficit - Routine Psychiatric Exam Present: normal affect, normal thought process Results - Labs CBC & Chem 7: 11/19/16 04:54 11/19/16 04:54 Assessment and Plan (1) Fall from wheelchair Current visit: Yes Status: Acute (2) Major depressive disorder, recurrent, severe with psychotic features Current visit: Yes Status: Acute (3) HTN (hypertension) Current visit: Yes Status: Chronic (4) Atrial fibrillation Current visit: Yes Status: Chronic (5) Chronic anticoagulation Current visit: Yes Status: Chronic (6) H/O: stroke Current visit: Yes Status: Chronic (7) History of seizures Current visit: Yes Status: Chronic DVT Prophylaxis: Coumadin Resuscitation Status: Full Code Assessment and Plan: Fall, with forehead contusion -Neurologically stable. -Coumadin has been restarted [per pharmacy protocol]. -Continue to monitor, especially since Coumadin has been resumed. Normocytic anemia- hgb actually has been declining. -Assess iron studies and repeat CBC in am. -vitamin B12 was low-normal. Start Vit B12 500 mcg daily. -Folate normal. Sepsis Assessment - Evaluation Sepsis screening result: No Definite Risk Hospital Course Summary Disclaimer: The visit summary below is not to be considered part of the above Progress Note. Hospital Course: 11/11/16 12:04 Increase Risperidone to 1mg PO q HS 11/11/16 14:40 Patient is doing well medically. Labs reviewed- pharmacy consulted to manage warfarin. Goal INR 2.0-3.0 given hx of Atrial Fib. (nursing notes state mechanical valve, but I cannot find that on hx or exam). Continue Gabapentin/Dilantin. Need to avoid quinolones if infection concerns given known sz hx. Avoid Tramadol. Continue supportive meds for CAD (? CHF hx- monitor fluid status). 11/12/16 12:00 Continue current meds. Just increased Risperidone yesterday. If insufficient, may be able to tolerate 0.5mg in AM as well. 11/13/16 20:00 Cont current medication. Family meeting tomorrow 11/14/16 at 1700 11/14/16 22:51 Increase Risperidone to 1mg BID 11/15/16 13:53 11/15 Overall doing well medically. Urinalysis was rechecked this morning and it was negative. Labs reviewed- pharmacy consulted to manage warfarin. Goal INR 2.0-3.0 given hx of Atrial Fib. INR today remains therapeutic at 2.0. This is managed by pharmacy Would recommend decreasing the amount of [place] if possible as this may contribute to her encephalopathy, mental status changes. May consider scheduled Tylenol if pain is an issue. Given patients history of seizures. Would recommend avoiding tramadol as this could lower the seizure threshold 11/15/16 22:25 Decrease dose of Risperidone to 1mg q Hs 11/16/16 19:18 Increase Remeron to 15mg at HS 11/17/16 17:25 Continue current care 11/18/16 11:30 Continue current care 11/18/16 14:05 Patient is having neurologic symptoms including left eye ptosis, altered mental status, drowsiness, nausea, nystagmus, following a fall from her wheelchair. She has a frontal contusion and superficial abrasion. She is on Coumadin for atrial fibrillation and her INR today is 2.0. She has not yet had her Coumadin today, and I have asked the nurses to hold it. We'll obtain a stat head CT, and also look at bone windows to evaluate for orbital floor fracture given her ptosis. I've asked nurses to monitor her closely and start neurochecks every couple hours. admission EKG reviewed - paced rhythm Head CT personally reviewed - NO acute bleeding. mild to moderate atrophy. Per radiology, no acute findings. 11/19/16 11:31 Continue current care 11/19/16 11:46 Fall, forehead contusion, suspect concussion. -Neurologic symptoms have resolved and patient is at her baseline mental status. -Continue with neurologic checks, but change frequency to every 4 hours while awake. -Hold Coumadin today, but if she remains stable tomorrow, will likely resume soon. Normocytic anemia. -Mild drop in hemoglobin to 9.7. 11/20/16 19:02 Add Risperdal 0.5mg in AM 11/21/16 Fall, with forehead contusion -Neurologically stable. -Coumadin has been restarted [per pharmacy protocol]. -Continue to monitor, especially since Coumadin has been resumed. Normocytic anemia- hgb actually has been declining. -Assess iron studies and repeat CBC in am. -vitamin B12 was low-normal. Start Vit B12 500 mcg daily. -Folate normal.
--- NOTE | 2016-11-21 17:24 | Neuropsych Progress Note ---
[facility] Subjective Date: 11/21/16 - Sujective/Severity of Illness Medications: Acetaminophen/Hydrocodone Bitart ([place] 5/325) 1 tab PO Q6H PRN PRN Reason: P Last Admin: 11/19/16 20:13 Dose: 1 tab Aspirin (Asa) 81 mg PO DAILY [facility] Last Admin: 11/21/16 10:48 Dose: 81 mg Atorvastatin Calcium (Lipitor) 10 mg PO 2100 [facility] Last Admin: 11/21/16 00:37 Dose: Not Given Cyanocobalamin (Vit. B-12) 500 mcg PO DAILY [facility] Diltiazem HCl (Cardizem Cd) 180 mg PO DAILY [facility] Last Admin: 11/21/16 10:48 Dose: 180 mg Dorzolamide/Timolol (Cosopt Ocumeter Plus) 1 drops RIGHT EYE BID [facility] Last Admin: 11/21/16 10:50 Dose: 1 drops Duloxetine HCl (Cymbalta) 60 mg PO DAILY [facility] Last Admin: 11/21/16 10:48 Dose: 60 mg Gabapentin (Neurontin) 100 mg PO BID [facility] Last Admin: 11/21/16 10:48 Dose: 100 mg Haloperidol (Haldol) 0.5 mg PO Q6H PRN PRN Reason: Extreme agitation Haloperidol Decanoate (Haldol Liquid) 0.5 mg PO Q6H PRN PRN Reason: Agitation Haloperidol Lactate (Haldol) 0.5 mg IM Q6H PRN PRN Reason: Extreme agitation Last Admin: 11/16/16 15:48 Dose: 0.5 mg Hydroxyzine HCl (Atarax) 25 mg PO BID PRN PRN Reason: Anxiety Lidocaine (Lidoderm) 1 patch TOP DAILY [facility] Last Admin: 11/21/16 10:49 Dose: 1 patch Lidocaine HCl/Dextrose (Lidoderm Patch Removal) 1 removal TOP 2100 [facility] Last Admin: 11/21/16 00:37 Dose: Not Given Lisinopril (Prinivil) 5 mg PO DAILY [facility] Last Admin: 11/21/16 10:47 Dose: 5 mg Loperamide HCl (Imodium) 2 - 4 mg PO Q4H PRN PRN Reason: LOOSE STOOLS Last Admin: 11/12/16 21:29 Dose: 4 mg Lorazepam (Ativan) 0.5 mg PO Q6H PRN PRN Reason: Extreme agitation Last Admin: 11/14/16 19:47 Dose: 0.5 mg Lorazepam (Ativan Inj) 0.5 mg IM Q6H PRN PRN Reason: Extreme agitation Last Admin: 11/16/16 15:47 Dose: 0.5 mg Lorazepam (Ativan Intensol) 0.5 mg PO Q6H PRN PRN Reason: Agitation Metoprolol Succinate (Toprol Xl) 50 mg PO DAILY [facility] Last Admin: 11/21/16 10:48 Dose: 50 mg Mirtazapine (Remeron) 15 mg PO 2100 [facility] Last Admin: 11/21/16 00:38 Dose: Not Given Nystatin (Mycostatin) 1 applic TP QID PRN PRN Reason: See comments below Last Admin: 11/18/16 19:38 Dose: 1 applic Pantoprazole Sodium (Protonix) 20 mg PO 2100 [facility] Last Admin: 11/21/16 00:38 Dose: Not Given Phenytoin Sodium (Dilantin) 200 mg PO WB [facility] Last Admin: 11/21/16 10:48 Dose: 200 mg Phenytoin Sodium (Dilantin) 300 mg PO 2100 [facility] Last Admin: 11/21/16 00:37 Dose: Not Given Risperidone (Risperdal) 1 mg PO 2100 [facility] Last Admin: 11/21/16 00:38 Dose: Not Given Risperidone (Risperdal) 0.5 mg PO DAILY [facility] Last Admin: 11/21/16 10:49 Dose: 0.5 mg Topiramate (Topamax) 25 mg PO DAILY [facility] Last Admin: 11/21/16 10:47 Dose: 25 mg Travoprost (Travatan Z) 1 drops EACH EYE 2099 [facility] Last Admin: 11/21/16 00:38 Dose: Not Given Warfarin Sodium (Coumadin Protocol) 0 MC NOTE [facility] Subjective: Pt seen and chart examined. Nursing reports pt is doing well. Sleeping well and has a good appetite. No behaviors noted. On face to face the pt states she is doing well. She is pleasant but confused. She is only oriented to self. She dneies any pain. Tolerating meds Start Time: 17:00 Stop Time: 17:15 Mental Status Exam Vitals: Last Vital Signs Temp 97.0 F 11/21/16 16:00 Pulse 82 11/21/16 16:00 Resp 16 11/21/16 16:00 BP 123/52 11/21/16 16:00 Pulse Ox 97 11/21/16 16:00 Height: 1.57 m Weight: 75.1 kg - Mental Status Exam Muscle Strength/Tone: Weak Dressing: Casual Grooming: Good Attitude: Cooperative Motor Activity: Retardation Eye Contact: Poor Speech: Slowed Volume: Normal Rhythm: Appropriate Rhythm Orientation: Oriented to person, Oriented to place, Oriented to time Mood: Irritable, Other (frustrated) Rate of Thoughts: Appropriate Rate Thought Organization: [place] Associations: Illogical Abstract Reasoning: Poor abstract reasoning Thought Content: Normal Perception/Psychotic: Perception Normal Fund of Knowledge: Poor fund of knowledge Memory: Poor-immediate Suicidal Ideation: None Homicidal Ideation: None Insight: Poor Judgement: Poor Impulse Control: Poor - Laboratory Result Diagrams: 11/19/16 04:54 11/19/16 04:54 Assessment and Plan (1) Major depressive disorder, recurrent, severe with psychotic features Current visit: Yes Status: Acute Hospital Course Summary Disclaimer: The visit summary below is not to be considered part of the above Progress Note. Hospital Course: 11/11/16 12:04 Increase Risperidone to 1mg PO q HS 11/11/16 14:40 Patient is doing well medically. Labs reviewed- pharmacy consulted to manage warfarin. Goal INR 2.0-3.0 given hx of Atrial Fib. (nursing notes state mechanical valve, but I cannot find that on hx or exam). Continue Gabapentin/Dilantin. Need to avoid quinolones if infection concerns given known sz hx. Avoid Tramadol. Continue supportive meds for CAD (? CHF hx- monitor fluid status). 11/12/16 12:00 Continue current meds. Just increased Risperidone yesterday. If insufficient, may be able to tolerate 0.5mg in AM as well. 11/13/16 20:00 Cont current medication. Family meeting tomorrow 11/14/16 at 1700 11/14/16 22:51 Increase Risperidone to 1mg BID 11/15/16 13:53 11/15 Overall doing well medically. Urinalysis was rechecked this morning and it was negative. Labs reviewed- pharmacy consulted to manage warfarin. Goal INR 2.0-3.0 given hx of Atrial Fib. INR today remains therapeutic at 2.0. This is managed by pharmacy Would recommend decreasing the amount of [place] if possible as this may contribute to her encephalopathy, mental status changes. May consider scheduled Tylenol if pain is an issue. Given patients history of seizures. Would recommend avoiding tramadol as this could lower the seizure threshold 11/15/16 22:25 Decrease dose of Risperidone to 1mg q Hs 11/16/16 19:18 Increase Remeron to 15mg at HS 11/17/16 17:25 Continue current care 11/18/16 11:30 Continue current care 11/18/16 14:05 Patient is having neurologic symptoms including left eye ptosis, altered mental status, drowsiness, nausea, nystagmus, following a fall from her wheelchair. She has a frontal contusion and superficial abrasion. She is on Coumadin for atrial fibrillation and her INR today is 2.0. She has not yet had her Coumadin today, and I have asked the nurses to hold it. We'll obtain a stat head CT, and also look at bone windows to evaluate for orbital floor fracture given her ptosis. I've asked nurses to monitor her closely and start neurochecks every couple hours. admission EKG reviewed - paced rhythm Head CT personally reviewed - NO acute bleeding. mild to moderate atrophy. Per radiology, no acute findings. 11/19/16 11:31 Continue current care 11/19/16 11:46 Fall, forehead contusion, suspect concussion. -Neurologic symptoms have resolved and patient is at her baseline mental status. -Continue with neurologic checks, but change frequency to every 4 hours while awake. -Hold Coumadin today, but if she remains stable tomorrow, will likely resume soon. Normocytic anemia. -Mild drop in hemoglobin to 9.7. 11/20/16 19:02 Add Risperdal 0.5mg in AM 11/21/16 Fall, with forehead contusion -Neurologically stable. -Coumadin has been restarted [per pharmacy protocol]. -Continue to monitor, especially since Coumadin has been resumed. Normocytic anemia- hgb actually has been declining. -Assess iron studies and repeat CBC in am. -vitamin B12 was low-normal. Start Vit B12 500 mcg daily. -Folate normal. 11/21/16 17:24 Continue current care
[2016-11-22] MEDS: PHENYTOIN 100 MG CAPSULE PO SCH ×3 (00:28→19:48)
[2016-11-22] MEDS: ATORVASTATIN 10 MG TABLET PO SCH ×2 (00:30→19:46)
[2016-11-22] MEDS: GABAPENTIN 100 MG CAPSULE PO SCH ×3 (00:30→19:46)
[2016-11-22] MEDS: MIRTAZAPINE 15 MG TABLET PO SCH ×2 (00:30→19:47)
[2016-11-22] MEDS: PANTOPRAZOLE 20 MG TABLET PO SCH ×2 (00:30→19:47)
[2016-11-22] MEDS: RisperiDONE 1 MG TABLET PO SCH ×2 (00:31→19:46)
[2016-11-22] MEDS: ASPIRIN 81 MG CHEWABLE TABLET PO SCH (09:02)
[2016-11-22] MEDS: LISINOPRIL 5 MG TABLET PO SCH (09:03)
[2016-11-22] MEDS: LIDOCAINE 5% PATCH TOP SCH (09:03)
[2016-11-22] MEDS: DULOXETINE 60 MG CAPSULE PO SCH (09:03)
[2016-11-22] MEDS: RisperiDONE 0.5 MG TABLET PO SCH (09:03)
[2016-11-22] MEDS: CYANOCOBALAMIN (B-12) 500mcg TABLET PO SCH (09:04)
[2016-11-22] MEDS: TOPIRAMATE 25 MG TABLET PO SCH (09:04)
--- NOTE | 2016-11-22 11:31 | Pharmacy Consult ---
Pharmacy Consult-Warfarin - Laboratory Information 11/09/16 11/11/16 11/13/16 17:59 05:11 05:52 INR 2.37 H 2.84 H 4.24 H 11/14/16 11/15/16 11/16/16 08:16 09:14 06:58 INR 3.70 H 2.00 H 1.90 H 11/17/16 11/20/16 06:34 07:12 INR 2.00 H 2.00 H - Consult Information COUMADIN CONSULT (Recurring): Today's INR = Patient did not allow INR to be drawn. Will give Warfarin 4mg today. Will continue to monitor & make adjustments accordingly. Thank you.
[2016-11-22] MEDS ORDERED: WARFARIN 4 MG TABLET PO SCH (12:00)
[2016-11-22] MEDS ORDERED: WARFARIN 7.5 MG TABLET PO SCH (12:15)
[2016-11-22] MEDS: LORazepam 0.5 MG TABLET PO PRN (12:23)
[2016-11-22 16:13] VITALS: RESP 16
--- NOTE | 2016-11-22 18:33 | Neuropsych Progress Note ---
[facility] Subjective Date: 11/22/16 - Sujective/Severity of Illness Medications: Acetaminophen/Hydrocodone Bitart ([place] 5/325) 1 tab PO Q6H PRN PRN Reason: P Last Admin: 11/19/16 20:13 Dose: 1 tab Aspirin (Asa) 81 mg PO DAILY [facility] Last Admin: 11/22/16 09:02 Dose: 81 mg Atorvastatin Calcium (Lipitor) 10 mg PO 2100 [facility] Last Admin: 11/22/16 00:30 Dose: Not Given Cyanocobalamin (Vit. B-12) 500 mcg PO DAILY [facility] Last Admin: 11/22/16 09:04 Dose: 500 mcg Diltiazem HCl (Cardizem Cd) 180 mg PO DAILY [facility] Last Admin: 11/22/16 09:02 Dose: 180 mg Dorzolamide/Timolol (Cosopt Ocumeter Plus) 1 drops RIGHT EYE BID [facility] Last Admin: 11/22/16 09:02 Dose: 1 drops Duloxetine HCl (Cymbalta) 60 mg PO DAILY [facility] Last Admin: 11/22/16 09:03 Dose: 60 mg Gabapentin (Neurontin) 100 mg PO BID [facility] Last Admin: 11/22/16 09:03 Dose: 100 mg Haloperidol (Haldol) 0.5 mg PO Q6H PRN PRN Reason: Extreme agitation Haloperidol Decanoate (Haldol Liquid) 0.5 mg PO Q6H PRN PRN Reason: Agitation Haloperidol Lactate (Haldol) 0.5 mg IM Q6H PRN PRN Reason: Extreme agitation Last Admin: 11/16/16 15:48 Dose: 0.5 mg Hydroxyzine HCl (Atarax) 25 mg PO BID PRN PRN Reason: Anxiety Lidocaine (Lidoderm) 1 patch TOP DAILY [facility] Last Admin: 11/22/16 09:03 Dose: 1 patch Lidocaine HCl/Dextrose (Lidoderm Patch Removal) 1 removal TOP 2100 [facility] Last Admin: 11/21/16 20:30 Dose: 1 removal Lisinopril (Prinivil) 5 mg PO DAILY [facility] Last Admin: 11/22/16 09:03 Dose: 5 mg Loperamide HCl (Imodium) 2 - 4 mg PO Q4H PRN PRN Reason: LOOSE STOOLS Last Admin: 11/12/16 21:29 Dose: 4 mg Lorazepam (Ativan) 0.5 mg PO Q6H PRN PRN Reason: Extreme agitation Last Admin: 11/22/16 12:23 Dose: 0.5 mg Lorazepam (Ativan Inj) 0.5 mg IM Q6H PRN PRN Reason: Extreme agitation Last Admin: 11/16/16 15:47 Dose: 0.5 mg Lorazepam (Ativan Intensol) 0.5 mg PO Q6H PRN PRN Reason: Agitation Metoprolol Succinate (Toprol Xl) 50 mg PO DAILY [facility] Last Admin: 11/22/16 09:04 Dose: 50 mg Mirtazapine (Remeron) 15 mg PO 2100 [facility] Last Admin: 11/22/16 00:30 Dose: Not Given Nystatin (Mycostatin) 1 applic TP QID PRN PRN Reason: See comments below Last Admin: 11/18/16 19:38 Dose: 1 applic Pantoprazole Sodium (Protonix) 20 mg PO 2100 [facility] Last Admin: 11/22/16 00:30 Dose: Not Given Phenytoin Sodium (Dilantin) 200 mg PO WB [facility] Last Admin: 11/22/16 09:01 Dose: 200 mg Phenytoin Sodium (Dilantin) 300 mg PO 2100 [facility] Last Admin: 11/22/16 00:28 Dose: Not Given Risperidone (Risperdal) 1 mg PO 2100 [facility] Last Admin: 11/22/16 00:31 Dose: Not Given Risperidone (Risperdal) 0.5 mg PO DAILY [facility] Last Admin: 11/22/16 09:03 Dose: 0.5 mg Topiramate (Topamax) 25 mg PO DAILY [facility] Last Admin: 11/22/16 09:04 Dose: 25 mg Travoprost (Travatan Z) 1 drops EACH EYE 2099 [facility] Last Admin: 11/21/16 19:59 Dose: 1 drops Warfarin Sodium (Coumadin Protocol) 0 MC NOTE [facility] Subjective: Pt seen and chart examined. Nursing reports pt remains irritable at times but is redirectable and no aggression noted. Sleeping well and has a good appetite. On face to face the pt states she is doing well. She is pleasant. She denies any S/I. Tolerating meds Start Time: 17:30 Stop Time: 17:45 Mental Status Exam Vitals: Last Vital Signs Temp 97.6 F 11/22/16 16:00 Pulse 62 11/22/16 16:00 Resp 16 11/22/16 16:00 BP 119/50 11/22/16 16:00 Pulse Ox 98 11/22/16 16:00 Height: 1.57 m Weight: 75.1 kg - Mental Status Exam Muscle Strength/Tone: Weak Dressing: Casual Grooming: Good Attitude: Cooperative Motor Activity: Retardation Eye Contact: Poor Speech: Slowed Volume: Normal Rhythm: Appropriate Rhythm Orientation: Oriented to person, Oriented to place, Oriented to time Mood: Irritable, Other (frustrated) Rate of Thoughts: Appropriate Rate Thought Organization: [place] Associations: Illogical Abstract Reasoning: Poor abstract reasoning Thought Content: Normal Perception/Psychotic: Perception Normal Fund of Knowledge: Poor fund of knowledge Memory: Poor-immediate Suicidal Ideation: None Homicidal Ideation: None Insight: Poor Judgement: Poor Impulse Control: Poor - Laboratory Result Diagrams: 11/22/16 11:30 11/22/16 11:30 Laboratory Results - last 24 hr 11/21/16 11/22/16 11/22/16 14:54 11:30 11:30 WBC 9.2 RBC 3.50 L Hgb 11.1 L Hct 34.7 L MCV 99.1 MCH 31.7 MCHC 32.0 RDW Std Deviation 45.7 Plt Count 278 MPV 10.6 Immature Gran % (Auto) 0.4 Neut % (Auto) 66.9 H Lymph % (Auto) 20.8 L [place] % (Auto) 7.9 Eos % (Auto) 3.5 Baso % (Auto) 0.5 Neut # 6.1 Lymph # 1.9 [place] # 0.7 Eos # 0.3 Baso # 0.1 Abs Immat Gran (auto) 0.04 H INR 1.60 H Turbidity Sodium Potassium Chloride Carbon Dioxide Anion Gap BUN Creatinine GFR Calculation BUN/Creatinine Ratio Glucose Calculated Osmolality Calcium Iron 102 TIBC 270 % Saturation 38 Icterus Index Specimen Hemolysis 11/22/16 11:30 WBC RBC Hgb Hct MCV MCH MCHC RDW Std Deviation Plt Count MPV Immature Gran % (Auto) Neut % (Auto) Lymph % (Auto) [place] % (Auto) Eos % (Auto) Baso % (Auto) Neut # Lymph # [place] # Eos # Baso # Abs Immat Gran (auto) INR Turbidity < 20 Sodium 144 Potassium 5.5 H Chloride 109 H Carbon Dioxide 21 L Anion Gap 14 BUN 31.0 H Creatinine 0.8 GFR Calculation 68 BUN/Creatinine Ratio 39 H Glucose 132 H Calculated Osmolality 286 H Calcium 10.2 Iron TIBC % Saturation Icterus Index < 2 Specimen Hemolysis 55 H Assessment and Plan (1) Major depressive disorder, recurrent, severe with psychotic features Current visit: Yes Status: Acute Hospital Course Summary Disclaimer: The visit summary below is not to be considered part of the above Progress Note. Hospital Course: 11/11/16 12:04 Increase Risperidone to 1mg PO q HS 11/11/16 14:40 Patient is doing well medically. Labs reviewed- pharmacy consulted to manage warfarin. Goal INR 2.0-3.0 given hx of Atrial Fib. (nursing notes state mechanical valve, but I cannot find that on hx or exam). Continue Gabapentin/Dilantin. Need to avoid quinolones if infection concerns given known sz hx. Avoid Tramadol. Continue supportive meds for CAD (? CHF hx- monitor fluid status). 11/12/16 12:00 Continue current meds. Just increased Risperidone yesterday. If insufficient, may be able to tolerate 0.5mg in AM as well. 11/13/16 20:00 Cont current medication. Family meeting tomorrow 11/14/16 at 1700 11/14/16 22:51 Increase Risperidone to 1mg BID 11/15/16 13:53 11/15 Overall doing well medically. Urinalysis was rechecked this morning and it was negative. Labs reviewed- pharmacy consulted to manage warfarin. Goal INR 2.0-3.0 given hx of Atrial Fib. INR today remains therapeutic at 2.0. This is managed by pharmacy Would recommend decreasing the amount of [place] if possible as this may contribute to her encephalopathy, mental status changes. May consider scheduled Tylenol if pain is an issue. Given patients history of seizures. Would recommend avoiding tramadol as this could lower the seizure threshold 11/15/16 22:25 Decrease dose of Risperidone to 1mg q Hs 11/16/16 19:18 Increase Remeron to 15mg at HS 11/17/16 17:25 Continue current care 11/18/16 11:30 Continue current care 11/18/16 14:05 Patient is having neurologic symptoms including left eye ptosis, altered mental status, drowsiness, nausea, nystagmus, following a fall from her wheelchair. She has a frontal contusion and superficial abrasion. She is on Coumadin for atrial fibrillation and her INR today is 2.0. She has not yet had her Coumadin today, and I have asked the nurses to hold it. We'll obtain a stat head CT, and also look at bone windows to evaluate for orbital floor fracture given her ptosis. I've asked nurses to monitor her closely and start neurochecks every couple hours. admission EKG reviewed - paced rhythm Head CT personally reviewed - NO acute bleeding. mild to moderate atrophy. Per radiology, no acute findings. 11/19/16 11:31 Continue current care 11/19/16 11:46 Fall, forehead contusion, suspect concussion. -Neurologic symptoms have resolved and patient is at her baseline mental status. -Continue with neurologic checks, but change frequency to every 4 hours while awake. -Hold Coumadin today, but if she remains stable tomorrow, will likely resume soon. Normocytic anemia. -Mild drop in hemoglobin to 9.7. 11/20/16 19:02 Add Risperdal 0.5mg in AM 11/21/16 Fall, with forehead contusion -Neurologically stable. -Coumadin has been restarted [per pharmacy protocol]. -Continue to monitor, especially since Coumadin has been resumed. Normocytic anemia- hgb actually has been declining. -Assess iron studies and repeat CBC in am. -vitamin B12 was low-normal. Start Vit B12 500 mcg daily. -Folate normal. 11/21/16 17:24 Continue current care 11/22/16 18:32 D/C home tomorrow
--- NOTE | 2016-11-22 18:52 | Discharge Instructions ---
Discharge Plan - Med Rec/Dispo Referrals/Follow Up: Ashlie Cook APRN [Other] (Ashlie Cook APRN will see patient on rounds at the facility for Mental Health follow-up. ) Montserrat Lockhart MD [Family Provider] - (Dr. Katia Lockhart on 12/04/16 at 8:45 am for Hosp. follow-up. Clinic/E. [address] [address]) Additional Instructions: Reasons for Admission: Major Neurocognitive Disorder with Behavioral Disturbance Discharge Diagnosis: Major Neurocognitive Disorder with Behavioral Disturbance IN CASE OF PSYCHIATRIC EMERGENCY, CONTACT GENERATIONS STAFF AT [phone] ( available 24 hrs daily). Prescriptions: New Duloxetine [Cymbalta] 60 mg PO DAILY #30 capsule Haloperidol [Haldol] 0.5 mg PO Q6H PRN #120 tablet PRN Reason: Extreme Agitation HydrOXYzine [Atarax] 25 mg PO BID PRN #60 tablet PRN Reason: Anxiety RisperiDONE [RisperDAL] 0.5 mg PO DAILY #30 tablet RisperiDONE [RisperDAL] 1 mg PO 2100 #30 tablet Mirtazapine [Remeron] 15 mg PO 2100 #30 tablet Discontinued Duloxetine HCl 1 cap PO DAILY #0 cap Mirtazapine 7.5 mg PO HS #0 RisperiDONE [RisperDAL] 0.25 mg PO DAILY 30 Days risperiDONE [Risperdal] 0.5 mg PO HS 30 Days hydrOXYzine pamoate [Hydroxyzine Pamoate] 1 cap PO BID PRN #60 cap PRN Reason: ANXIETY No Action Aspirin 1 tab PO DAILY #30 tab Dorzolamide HCl/Timolol Maleat [Dorzolamide-Timolol Eye Drops] 1 drop OP BID #10 ml Gabapentin 1 cap PO BID #0 cap Lisinopril 5 mg PO DAILY #0 tab Metoprolol Succinate 50 mg PO DAILY #0 tab Pantoprazole Sodium 20 mg PO HS #0 Phenytoin Sodium Extended [Dilantin] 3 cap PO HS #90 cap Topiramate 1 tab PO DAILY #90 tab Diphenoxylate HCl/Atropine [Lomotil 2.5-0.025 mg Tablet] 1 tab PO QID PRN # 20 tab PRN Reason: DIARRHEA Hydrocodone/Acetaminophen ([place] 5-325 Tablet) 1 tab PO Q6H PRN #0 tab PRN Reason: PAIN Acetaminophen [Tylenol Extra Strength] 1 tab PO Q4-6H PRN #0 tab PRN Reason: PAIN/FEVER Atorvastatin Calcium 1 tab PO DAILY #0 tab dilTIAZem HCl [Diltiazem 24Hr ER] 180 mg PO DAILY #0 cap Acetaminophen [Tylenol] 2 tab PO TID #60 tab Phenytoin Sodium Extended [Dilantin] 2 cap PO HS #90 cap Travoprost [Travatan Z] 1 drop OP HS #0 Warfarin Sodium 5 mg PO 1700 #0 tab Discharge Instructions/Outpatient Orders: Criteria for Antipsychotic Use Location: Determined By Patient Final Provider Discharge Instructions Location: Determined By Patient - Disposition 04 To [facility] Home/Facility
[2016-11-22] MEDS: LIDOCAINE PATCH REMOVAL TOP SCH (20:30)
[2016-11-22] MEDS: TRAVOPROST 0.004% EYE DROPS 2.5ml EACH EYE SCH (23:18)
--- NOTE | 2016-11-23 07:48 | Pharmacy Consult ---
Pharmacy Consult-Warfarin - Laboratory Information 11/09/16 11/11/16 11/13/16 17:59 05:11 05:52 INR 2.37 H 2.84 H 4.24 H 11/14/16 11/15/16 11/16/16 08:16 09:14 06:58 INR 3.70 H 2.00 H 1.90 H 11/17/16 11/20/16 11/22/16 06:34 07:12 11:30 INR 2.00 H 2.00 H 1.60 H 11/23/16 04:55 INR 1.79 H 86 y.o. F with history of A.Fib and chronic anti-coagulation with warfarin. goal INR range= 2.0 to 3.0. Home warfarin dose= 5 mg po daily. Date INR Dose 11/09 2.37 5 mg 11/10 --- 5 mg 11/11 2.84 5 mg 11/12 --- 5 mg 11/13 4.24 no dose 11/14 3.7 no dose 11/15 2.0 3 mg 11/16 1.9 4 mg 11/17 2.0 4 mg 11/18 --- No dose given as patient fell. 11/19 --- Daily dose discontinued. 11/20 2.0 No dose given. 11/21 --- 5 mg 8.02 1.60 7.5 mg 11/23 1.75 Plan 7.5 mg Today's INR is subtherapeutic at 1.75. I ordered Warfarin 7.5 mg by mouth today. The Pharmacy will continue to monitor and adjust the warfarin as needed. Thank you for the warfarin dosing protocol, Prieto Guadarrama [facility]
[2016-11-23 08:19] VITALS: BP 130/62; PULSE 74; TEMP 97.3; O2SAT 99
[2016-11-23] MEDS: LISINOPRIL 5 MG TABLET PO SCH (08:28)
[2016-11-23] MEDS: CYANOCOBALAMIN (B-12) 500mcg TABLET PO SCH ×2 (08:28→09:37)
[2016-11-23] MEDS: RisperiDONE 0.5 MG TABLET PO SCH ×2 (08:28→09:34)
[2016-11-23] MEDS: DULOXETINE 60 MG CAPSULE PO SCH ×2 (08:28→09:34)
[2016-11-23] MEDS: GABAPENTIN 100 MG CAPSULE PO SCH ×2 (08:28→09:31)
[2016-11-23] MEDS: ASPIRIN 81 MG CHEWABLE TABLET PO SCH ×2 (08:28→09:34)
[2016-11-23] MEDS: TOPIRAMATE 25 MG TABLET PO SCH ×2 (08:28→09:34)
[2016-11-23] MEDS: PHENYTOIN 100 MG CAPSULE PO SCH ×2 (08:29→09:34)
[2016-11-23] MEDS: LIDOCAINE 5% PATCH TOP SCH (08:29)
--- NOTE | 2016-11-23 09:00 | Discharge Instructions ---
Discharge Plan - Med Rec/Dispo Referrals/Follow Up: Montserrat Lockhart MD [Family Provider] - (Dr. Katia Lockhart on 12/04/16 at 8:45 am for Hosp. follow-up. Clinic/E. [address] [place] [address]) Ashlie Cook APRN [Other] (Ashlie Cook APRN will see patient on rounds at the facility for Mental Health follow-up. ) Additional Instructions: Cristine will need a INR on Sunday11/25/16. Results called to PCP for Coumadin dosing. Reasons for Admission: Major Neurocognitive Disorder with Behavioral Disturbance Discharge Diagnosis: Major Neurocognitive Disorder with Behavioral Disturbance IN CASE OF PSYCHIATRIC EMERGENCY, CONTACT GENERATIONS STAFF AT [phone] ( available 24 hrs daily). Prescriptions: New Duloxetine [Cymbalta] 60 mg PO DAILY #30 capsule Haloperidol [Haldol] 0.5 mg PO Q6H PRN #120 tablet PRN Reason: Extreme Agitation HydrOXYzine [Atarax] 25 mg PO BID PRN #60 tablet PRN Reason: Anxiety RisperiDONE [RisperDAL] 0.5 mg PO DAILY #30 tablet RisperiDONE [RisperDAL] 1 mg PO 2100 #30 tablet Cyanocobalamin (B-12) [Vit. B-12] 500 mcg PO DAILY tablet Lidocaine 5% Patch [Lidoderm] 1 patch TOP DAILY patch Loperamide [Imodium] 2 - 4 mg PO Q4H PRN capsule PRN Reason: LOOSE STOOLS Mirtazapine [Remeron] 15 mg PO 2100 #30 tablet Lidocaine Patch Removal [Lidoderm Patch Removal] 1 removal TOP 2100 patch Warfarin [Coumadin] 7.5 mg PO NOON tablet Continue Aspirin 1 tab PO DAILY #30 tab Dorzolamide HCl/Timolol Maleat [Dorzolamide-Timolol Eye Drops] 1 drop OP BID #10 ml Gabapentin 1 cap PO BID #0 cap Lisinopril 5 mg PO DAILY #0 tab Metoprolol Succinate 50 mg PO DAILY #0 tab Pantoprazole Sodium 20 mg PO HS #0 Phenytoin Sodium Extended [Dilantin] 3 cap PO HS #90 cap Topiramate 1 tab PO DAILY #90 tab Acetaminophen [Tylenol Extra Strength] 1 tab PO Q4-6H PRN #0 tab PRN Reason: PAIN/FEVER Atorvastatin Calcium 1 tab PO DAILY #0 tab dilTIAZem HCl [Diltiazem 24Hr ER] 180 mg PO DAILY #0 cap Phenytoin Sodium Extended [Dilantin] 2 cap PO HS #90 cap Travoprost [Travatan Z] 1 drop OP HS #0 Discontinued Duloxetine HCl 1 cap PO DAILY #0 cap Mirtazapine 7.5 mg PO HS #0 Hydrocodone/Acetaminophen ([place] 5-325 Tablet) 1 tab PO Q6H PRN #0 tab PRN Reason: PAIN RisperiDONE [RisperDAL] 0.25 mg PO DAILY 30 Days risperiDONE [Risperdal] 0.5 mg PO HS 30 Days hydrOXYzine pamoate [Hydroxyzine Pamoate] 1 cap PO BID PRN #60 cap PRN Reason: ANXIETY No Action Diphenoxylate HCl/Atropine [Lomotil 2.5-0.025 mg Tablet] 1 tab PO QID PRN # 20 tab PRN Reason: DIARRHEA Acetaminophen [Tylenol] 2 tab PO TID #60 tab Warfarin Sodium 5 mg PO 1700 #0 tab Discharge Instructions/Outpatient Orders: Criteria for Antipsychotic Use Location: Determined By Patient Final Provider Discharge Instructions Location: Determined By Patient - Disposition 04 To [facility] Home/Facility
[2016-11-23] MEDS: LORazepam INTENSOL 1mg/0.5ml ORAL LIQUID PO PRN (09:17)
[2016-11-23] MEDS ORDERED: WARFARIN 7.5 MG TABLET PO SCH (12:00)
--- NOTE | 2016-12-03 13:41 | Neuropsychiatric Disch Summary ---
Discharge Information Date of admission: 11/09/16 14:18 Attending Physician: Isaac Rousseau MD Primary care physician: Montserrat Lockhart MD Consults: 11/09/16 Pharmacy Consult [CONS] Routine Pharmacy Consult: Coumadin/Warfarin Comment: pt received 5 mg this spencer new admit 11/09/16 15:16 Case Management Consult [CONS] Routine Reason For Exam: Medical Management H&P Physician Consult [CONS] Routine Consulting Provider: Sarah Zambrano Reason For Exam: Medical Management H&P Ordering Provider has Notified Line Driver: No - Discharge Diagnosis Discharge Diagnosis: Major neurocognitive Disorder with behavioral disturbance - Laboratory Labs: 11/23/16 04:55 11/23/16 04:55 Date of Admission: 11/09/16 14:18 History of Present Illness: HPI: 86 Y/O CF who was recently on our unit sent from a [place] for increasing paranoia. Nursing staff at the facility states the pt has been increasingly paranoid and angry with staff and believes staff were stealing her things. Pt had begun to refuse meds and was tearful at times. On face to face the pt has poor insight. She states staff stole some pearls from a necklace and they have been lying about her. She states some of the patients are actually staff in disguise and are spying on her. She states she feels safe here and denies S/I. STRESSORS: Pt believes NH staff are stealing her things. PSYCH ROS: Pt denies feeling depressed at this time. She is impulsive and gets angry easily. She is alert and oriented x 3 but does have some issues with memory. She denies S/i. She denies anxiety and denies AH but is paranoid and delusional. PAST PSYCH: Pt was recently admitted to our [facility] for similar symptoms. Hospital Course This is a general summary of the patient's hospital course. For more details refer to the complete medical record. Hospital course: 11/11/16 12:04 Increase Risperidone to 1mg PO q HS 11/11/16 14:40 Patient is doing well medically. Labs reviewed- pharmacy consulted to manage warfarin. Goal INR 2.0-3.0 given hx of Atrial Fib. (nursing notes state mechanical valve, but I cannot find that on hx or exam). Continue Gabapentin/Dilantin. Need to avoid quinolones if infection concerns given known sz hx. Avoid Tramadol. Continue supportive meds for CAD (? CHF hx- monitor fluid status). 11/12/16 12:00 Continue current meds. Just increased Risperidone yesterday. If insufficient, may be able to tolerate 0.5mg in AM as well. 11/13/16 20:00 Cont current medication. Family meeting tomorrow 11/14/16 at 1700 11/14/16 22:51 Increase Risperidone to 1mg BID 11/15/16 13:53 11/15 Overall doing well medically. Urinalysis was rechecked this morning and it was negative. Labs reviewed- pharmacy consulted to manage warfarin. Goal INR 2.0-3.0 given hx of Atrial Fib. INR today remains therapeutic at 2.0. This is managed by pharmacy Would recommend decreasing the amount of [place] if possible as this may contribute to her encephalopathy, mental status changes. May consider scheduled Tylenol if pain is an issue. Given patients history of seizures. Would recommend avoiding tramadol as this could lower the seizure threshold 11/15/16 22:25 Decrease dose of Risperidone to 1mg q Hs 11/16/16 19:18 Increase Remeron to 15mg at HS 11/17/16 17:25 Continue current care 11/18/16 11:30 Continue current care 11/18/16 14:05 Patient is having neurologic symptoms including left eye ptosis, altered mental status, drowsiness, nausea, nystagmus, following a fall from her wheelchair. She has a frontal contusion and superficial abrasion. She is on Coumadin for atrial fibrillation and her INR today is 2.0. She has not yet had her Coumadin today, and I have asked the nurses to hold it. We'll obtain a stat head CT, and also look at bone windows to evaluate for orbital floor fracture given her ptosis. I've asked nurses to monitor her closely and start neurochecks every couple hours. admission EKG reviewed - paced rhythm Head CT personally reviewed - NO acute bleeding. mild to moderate atrophy. Per radiology, no acute findings. 11/19/16 11:31 Continue current care 11/19/16 11:46 Fall, forehead contusion, suspect concussion. -Neurologic symptoms have resolved and patient is at her baseline mental status. -Continue with neurologic checks, but change frequency to every 4 hours while awake. -Hold Coumadin today, but if she remains stable tomorrow, will likely resume soon. Normocytic anemia. -Mild drop in hemoglobin to 9.7. 11/20/16 19:02 Add Risperdal 0.5mg in AM 11/21/16 Fall, with forehead contusion -Neurologically stable. -Coumadin has been restarted [per pharmacy protocol]. -Continue to monitor, especially since Coumadin has been resumed. Normocytic anemia- hgb actually has been declining. -Assess iron studies and repeat CBC in am. -vitamin B12 was low-normal. Start Vit B12 500 mcg daily. -Folate normal. 11/21/16 17:24 Continue current care 11/22/16 18:32 D/C home tomorrow Time spent with patient: 25 - 35 minutes Discharge Plan - Med Rec/Dispo Referrals/Follow Up: Ashlie Cook APRN [Other] (Ashlie Cook APRN will see patient on rounds at the facility for Mental Health follow-up. ) Montserrat Lockhart MD [Family Provider] - (Dr. Katia Lockhart on 12/04/16 at 8:45 am for Hosp. follow-up. [facility] [address] [place] [address]) Additional Instructions: Cristine will need an INR on Sunday11/25/16. Results called to PCP for Coumadin dosing. Reasons for Admission: Major Neurocognitive Disorder with Behavioral Disturbance Discharge Diagnosis: Major Neurocognitive Disorder with Behavioral Disturbance IN CASE OF PSYCHIATRIC EMERGENCY, CONTACT GENERATIONS STAFF AT [phone] ( available 24 hrs daily). Prescriptions: New Duloxetine [Cymbalta] 60 mg PO DAILY #30 capsule Haloperidol [Haldol] 0.5 mg PO Q6H PRN #120 tablet PRN Reason: Extreme Agitation HydrOXYzine [Atarax] 25 mg PO BID PRN #60 tablet PRN Reason: Anxiety RisperiDONE [RisperDAL] 0.5 mg PO DAILY #30 tablet RisperiDONE [RisperDAL] 1 mg PO 2100 #30 tablet Cyanocobalamin (B-12) [Vit. B-12] 500 mcg PO DAILY tablet Lidocaine 5% Patch [Lidoderm] 1 patch TOP DAILY patch Loperamide [Imodium] 2 - 4 mg PO Q4H PRN capsule PRN Reason: LOOSE STOOLS Mirtazapine [Remeron] 15 mg PO 2100 #30 tablet Lidocaine Patch Removal [Lidoderm Patch Removal] 1 removal TOP 2100 patch Warfarin [Coumadin] 7.5 mg PO NOON tablet Continue Aspirin 1 tab PO DAILY #30 tab Dorzolamide HCl/Timolol Maleat [Dorzolamide-Timolol Eye Drops] 1 drop OP BID #10 ml Gabapentin 1 cap PO BID #0 cap Lisinopril 5 mg PO DAILY #0 tab Metoprolol Succinate 50 mg PO DAILY #0 tab Pantoprazole Sodium 20 mg PO HS #0 Phenytoin Sodium Extended [Dilantin] 3 cap PO HS #90 cap Topiramate 1 tab PO DAILY #90 tab Acetaminophen [Tylenol Extra Strength] 1 tab PO Q4-6H PRN #0 tab PRN Reason: PAIN/FEVER Atorvastatin Calcium 1 tab PO DAILY #0 tab dilTIAZem HCl [Diltiazem 24Hr ER] 180 mg PO DAILY #0 cap Phenytoin Sodium Extended [Dilantin] 2 cap PO HS #90 cap Travoprost [Travatan Z] 1 drop OP HS #0 Discontinued Duloxetine HCl 1 cap PO DAILY #0 cap Mirtazapine 7.5 mg PO HS #0 Hydrocodone/Acetaminophen ([place] 5-325 Tablet) 1 tab PO Q6H PRN #0 tab PRN Reason: PAIN RisperiDONE [RisperDAL] 0.25 mg PO DAILY 30 Days #30 tab risperiDONE [Risperdal] 0.5 mg PO HS 30 Days #30 tab hydrOXYzine pamoate [Hydroxyzine Pamoate] 1 cap PO BID PRN #60 cap PRN Reason: ANXIETY No Action Diphenoxylate HCl/Atropine [Lomotil 2.5-0.025 mg Tablet] 1 tab PO QID PRN # 20 tab PRN Reason: DIARRHEA Acetaminophen [Tylenol] 2 tab PO TID #60 tab Warfarin Sodium 5 mg PO 1700 #0 tab Discharge Instructions/Outpatient Orders: Criteria for Antipsychotic Use Location: Determined By Patient Final Provider Discharge Instructions Location: Determined By Patient - Disposition 01 Discharged Home, Self-Care
== END 2016-11-23 11:05 | disposition home or self-care (01) | DRG 885 ==
LOC: ED 13:44 → GEN 14:00
PROVIDERS: ADMIT Psychiatry & Neurology Psychiatry; ATTEND Psychiatry & Neurology Psychiatry